=== PATIENT | female | born 1970 | race Caucasian/White ===

== ENCOUNTER 2022-11-08 09:27 | Inpatient (IN) | payer OTHER, SELFPAY ==
[2022-11-08] VITALS (12 sets, daily range): BP systolic 155–198; BP diastolic 74–102; PULSE 74–82; RESP 11–20; TEMP 36.4–36.7; O2SAT 92–99; BMI 31.9; BMI 35.2
--- NOTE | ~2022-11-08 | CT_ITS ---
EXAMINATION: Right hand, chest and CT brain without contrast. CLINICAL INDICATIONS: Weakness. COMPARISON: Chest x-ray 04/03/2015. TECHNIQUE: Chest one view. Right hand 3 views. 5 mm thin axial and reformatted 2 mm thin sagittal and coronal images of brain were obtained without contrast. DLP [address] examination was performed using dose optimization technique as appropriate, variously including the following: Automated exposure control Adjustment of MA and/or KV according to patient size(this includes techniques or standardized protocols for targeted exams where dose is matched to indication/reason for exam; extremities or head. Use of iterative reconstruction techniques. FINDINGS: CHEST X-RAY: The lungs are well-expanded and clear. The heart size and pulmonary vascularity is normal. No gross bony abnormality seen. RIGHT HAND: There is no visible fracture, dislocation or subluxation seen. The carpometacarpal, metacarpophalangeal and interphalangeal joint spaces are maintained normal. No bony erosive changes or loose bodies. No periapical spurring. No acute fracture or dislocation seen. BRAIN: There is no acute intra-axial, extra-axial bleed, masses or midline shift. There is no edema. There is no acute infarction evolution. The lateral ventricles are symmetrical in size and configuration without enlargement. The lester to white matter differentiation is maintained normal. Bone windows reveal no calvarial abnormality. There is diffuse skin scalp calcifications. Bilateral paranasal sinuses and mastoid air cells are well-aerated. CT/CT head/brain wo IV con IMPRESSION: Unremarkable chest exam. Unremarkable right hand exam. Unremarkable CT brain without contrast.
--- NOTE | ~2022-11-08 | US_ITS ---
EXAMINATION: US VENOUS ULTRASOUND WITH DOPPLER LOWER EXTREMITY, BILATERAL CLINICAL INFORMATION: Lower extremity edema COMPARISON: None available. TECHNIQUE: Ultrasound of the deep veins is performed from the hip to the calf with compression sonography and color and pulse Doppler assessment. Spectral analysis with color-flow imaging is performed. FINDINGS: RIGHT: There is normal venous compression and respiratory variation and augmented flow. The visualized common femoral vein, superficial femoral vein, profunda femoral vein, popliteal vein, and the trifurcation region shows no evidence of deep venous thrombosis. There is no significant popliteal fossa cyst. LEFT: There is normal venous compression and respiratory variation and augmented flow. The visualized common femoral vein, superficial femoral vein, profunda femoral vein, popliteal vein, and the trifurcation region shows no evidence of deep venous thrombosis. There is no significant popliteal fossa cyst. Within the left groin are prominent lymph nodes measuring 3.2 x 0.7 x 3.0 cm and 1.7 x 0.9 x 2.1 cm. If the patient's symptoms persist, followup ultrasound in 5 days 7 days might be of value to exclude proximal propagation from a non-visualized calf vein. US/US venous duplex LE IMPRESSION: 1. No DVT demonstrated in the bilateral lower extremity. 2. Within the left groin are prominent lymph nodes measuring 3.2 x 0.7 x 3.0 cm and 1.7 x 0.9 x 2.1 cm.
--- NOTE | 2022-11-08 09:48 | ED.GENADULT ---
HPI - General Adult General Chief complaint: Weakness Stated complaint: GENERAL WEAKNESS,FALLS, FROM METHADONE CLINIC Time Seen by Provider: 11/08/22 09:46 Source: patient, EMS, RN notes reviewed and old records reviewed Mode of arrival: EMS History of Present Illness HPI narrative: 51-year-old female with a past medical history of bipolar, asthma, GERD, diabetes, hepatitis-C, early cirrhosis, methadone dependent, presenting to the ED via EMS complaining of generalized fatigue/weakness, dizziness, unsteady gait with frequent falls x months. Patient was sent in from methadone clinic with fall [employer], denies head trauma today, however reports fell yesterday hitting head, denies LOC. also reports bilateral LE edema & throbbing pain to right ring finger, tried to open at home last night without success. Reports intermittent SOB. Denies chest pain, headache, abdominal pain, vomiting. Also admits to recently relapsing on heroin, denies ETOH Related Data Home Medications Medication Instructions Recorded Confirmed albuterol sulfate 2.5 mg/3 mL 2.5 mg inhalation Q4H PRN 11/02/22 11/08/22 (0.083 %) solution for nebulization Shortness Of Breath albuterol sulfate 90 mcg/actuation 2 inh inhalation Q6H PRN Shortness 11/02/22 11/08/22 breath activated powder inhaler Of Breath (ProAir RespiClick) clonazepam 1 mg tablet 1 mg PO TID 11/02/22 11/08/22 clonidine HCl 0.1 mg tablet 0.1 mg PO BEDTIME 11/02/22 11/08/22 duloxetine 30 mg capsule,delayed 30 mg PO DAILY 11/02/22 11/08/22 release fluticasone propionate 230 2 puff inhalation BID 11/02/22 11/08/22 mcg-salmeterol 21 mcg/actuation HFA inhaler (Advair HFA) furosemide 20 mg tablet 20 mg PO DAILY PRN Edema 11/02/22 11/08/22 gabapentin 600 mg tablet 600 mg PO BID PRN Pain 11/02/22 11/08/22 insulin glargine 100 unit/mL (3 25 unit subcut DAILY 11/02/22 11/08/22 mL) subcutaneous pen (Lantus Solostar U-100 Insulin) insulin lispro 100 unit/mL 5 - 25 unit subcut TID 11/02/22 11/08/22 subcutaneous solution lidocaine 5 % topical patch 1 patch topical DAILY 11/02/22 11/08/22 magnesium oxide 400 mg (241.3 mg 400 mg PO BID 11/02/22 11/08/22 magnesium) tablet methadone 5 mg/5 mL oral solution 35 mg PO DAILY 11/02/22 11/02/22 omeprazole 40 mg capsule,delayed 40 mg PO DAILY 11/02/22 11/08/22 release spironolactone 25 mg tablet 25 mg PO DAILY 11/02/22 11/08/22 triamcinolone acetonide 0.025 % 1 appl topical BID 11/02/22 11/08/22 topical cream zolpidem 12.5 mg tablet,extended 12.5 mg PO BEDTIME PRN Sleep 11/02/22 11/08/22 release,multiphase insulin glargine 100 unit/mL (3 25 unit subcut BEDTIME 11/08/22 11/08/22 mL) subcutaneous pen (Lantus Solostar U-100 Insulin) methocarbamol 750 mg tablet 750 mg PO QID PRN Pain 11/08/22 11/08/22 Allergies Allergy/AdvReac Type Severity Reaction Status Date / Time No Known Allergies Allergy Verified 11/02/22 15:26 Review of Systems Review of Systems: Constitutional: No Fever, No Chills, + Fatigue, + Malaise ENT/Mouth: No Hearing loss, No Ear Pain, No Nasal Congestion, No sore throat, No Rhinorrhea, No Swallowing Difficulty Eyes: No Eye Pain, No Swelling, NNo Vision Changes Cardiovascular: No Chest Pain, + SOB, No Dyspnea on Exertion, No Orthopnea, + Edema, No Palpitations Respiratory: No Cough, No Sputum, No Wheezing, No Dyspnea Gastrointestinal: + Nausea, No Vomiting, No Diarrhea, No Constipation, No Abdominal pain Genitourinary: No Dysuria, No Urinary Frequency, No Hematuria, No Urinary Incontinence/retention, No Urgency, No Flank Pain Musculoskeletal: No joint pain, No Myalgias, No Joint Swelling Skin: No Skin Lesions, No rash Neuro: + Weakness, No Numbness, No Paresthesias, No Loss of Consciousness, + lightheaded/ Dizziness, No Headache Yes all other systems are reviewed and are negative Constitutional: Constitutional: Reports as per HPI Neurologic: Denies Abnormal speech present PMFSH Past Medical History Attestation statement: The following information was validated with the patient. Medical History Hx of cryosurgery of cervix complicating Lumbar disc herniation PPD positive Family History Family History Mother Rheumatoid arthritis CAD (coronary artery disease) Glaucoma Diabetes HTN (hypertension) Maternal Grandmother Cataract Alzheimers disease Father HTN (hypertension) CAD (coronary artery disease) Diabetes Maternal Grandfather Parkinson disease Paternal Grandmother CAD (coronary artery disease) Rheumatoid arthritis Diabetes Paternal Grandfather Diabetes HTN (hypertension) Social History Social History Alcohol intake: never Patient Tobacco Use Status: Current everyday Tobacco user Cigarette Packs Per Day: 0.25 Cigarettes Per Day: 6 Years Smoked: 9 Smoked in Last 30 Days: Yes Use of substances other than those prescribed or required for medical reasons: Yes Substance Use Type: Heroin Advance Directives: No Advance Directives Information Provided: Yes Physical Exam ED Vital Signs: Vital Signs - 24 hr 11/08/22 09:47 11/08/22 10:00 11/08/22 11:04 Temperature 98.0 F Pulse Rate 82 77 Respiratory Rate 18 16 Blood Pressure 155/74 H 176/96 H Pulse Oximetry 99 Oxygen Delivery Method Room Air 11/08/22 11:05 11/08/22 11:09 11/08/22 12:05 Temperature Pulse Rate 80 79 78 Respiratory Rate 11 L Blood Pressure 189/97 H 198/102 H 165/91 H Pulse Oximetry 98 Oxygen Delivery Method Room Air 11/08/22 15:17 Temperature 97.6 F Pulse Rate 76 Respiratory Rate 16 Blood Pressure 160/81 H Pulse Oximetry 92 Oxygen Delivery Method Room Air BMI result Body Mass Index 31.9 Const Other: Appears under the influence General: cooperative, no acute distress, alert and awake Orientation/consciousness: patient oriented x3 HENMT Head: Yes normal to inspection and Yes atraumatic Ears: hearing grossly normal bilaterally General nose exam: Normal external nose present Face and sinus: Yes normal facial exam Throat: Yes posterior oropharynx normal Eyes General: appearance normal, both eyes and all related structures Pupils: Equal, round and reactive pupils present EOM: EOMs intact bilaterally Neck Neck: Yes normal visual inspection and Yes no meningeal signs Chest Chest palpation & inspection: normal inspection of the chest Resp Effort & Inspection: normal respiratory effort and no respiratory distress Auscultation: clear to auscultation bilaterally Cardio Rate: regular rate Heart sounds: S1 normal heart sound present and S2 normal heart sound present GI Inspection: Yes normal to inspection Palpation (GI): Soft to palpation, nontender, no guarding and not rigid Skin Rashes: no rashes Neuro General: patient oriented x3, tone normal, moves all extremities, no meningeal signs, no focal motor deficits and CN's II-XI intact bilaterally Cranial nerves: Yes CN's II-XII intact bilaterally and Yes Equal, round and reactive pupils present Speech: No Abnormal speech present Motor exam (neuro): 5/5 motor strength present throughout Extrem Other: Please refer to imaged above of right 4th digit. Appreciable felon with surrounding erythema, warmth, and exquisite tenderness. + fluctuant 3+ bilateral LE pitting edema with skin tightness General: Yes edema Course Course Course Narrative: -consult orthopedics, spoke with KAMLA Naranjo recommended medicine admit for IV antibiotics, may need I&D in the OR -1223--no leukocytosis. Lactic acid negative -1411--ESR elevated 54, CRP mildly elevated. Magnesium low at 1.4 >2g IV repletion ordered CT head/brain wo IV con/XR hand RT min 3V/XR chest 1V IMPRESSION: Unremarkable chest exam. ? Unremarkable right hand exam. ? Unremarkable CT brain without contrast. -orthostatic vital signs negative -venous duplex ultrasound negative for DVT >> plan to admit for further management Medications Administered Discontinued Medications Generic Name Dose Route Start Last Admin Trade Name Tonq PRN Reason Stop Dose Admin Furosemide 40 mg 11/08/22 14:13 11/08/22 14:55 Furosemide 40 Mg/4 Ml Vial IVPUSH 11/08/22 14:14 40 mg STAT STA Administration Protocol Sodium Chloride 1,000 mls @ 999 mls/hr 11/08/22 10:00 11/08/22 12:57 Ns IV 11/08/22 11:00 Infused .Q1H1M MARTINA Infusion Doxycycline Hyclate 100 mg/ 250 mls @ 166.67 mls/hr 11/08/22 12:23 11/08/22 12:57 Sodium Chloride IV 11/08/22 13:52 166.67 mls/hr ONCE ONE Administration Magnesium Sulfate 2 gm in 50 mls @ 25 mls/hr 11/08/22 12:38 11/08/22 15:04 Magnesium Sulfate/H2o IV 11/08/22 14:37 25 mls/hr ONCE ONE Administration Ketorolac Tromethamine 15 mg 11/08/22 13:09 11/08/22 13:35 Ketorolac Tromethamine 15 Mg/Ml Vial IVPUSH 11/08/22 13:10 15 mg ONCE ONE Administration Medical Decision Making Medical Decision Making MDM Narrative: 51-year-old female with a past medical history of bipolar, asthma, GERD, diabetes, hepatitis-C, early cirrhosis, methadone dependent, presenting to the ED via EMS complaining of generalized fatigue/weakness, dizziness, unsteady gait with frequent falls x months. Also reports bilateral LE edema w/SOB & throbbing pain to right ring finger. On exam vital signs stable, NAD, appears under the influence, no focal neuro deficits, abdomen soft/nontender, bilateral 3+ LE pitting edema/skin tightening, no drainage. Please refer to picture above of right 4th digit concerning for felon. Concern for substance abuse vs metabolic/infectious etiologies vs CHF vs subacute CVA. Low suspicion for TIA/PE or ACS Plan: EKG, labs, UA, drug screen, CXR, head CT, orthostatics, consult Orthopedics Please refer to course for remaining clinical decision making, interpretation of labs/imaging results, and discussions with consultants and/or family members. Differential Diagnosis Differential Diagnoses: The differential diagnosis associated with the presentation includes As above Admission/Observation Consideration of admission/observation: Escalation of care including admission/observation considered Lab Data [facility] Lab Attestation statement: I reviewed the patient's lab results. 11/08/22 10:53 11/08/22 10:53 Labs: Lab Results 11/08/22 11/08/22 11/08/22 Range/Units 10:41 10:53 10:53 WBC 6.1 (4.8-10.8) X10*3/uL RBC 4.07 L (4.20-5.50) X10*6/uL Hgb 11.2 L (12.0-16.0) g/dl Hct 32.5 L (37.0-47.0) % MCV 79.9 L (80.0-98.0) fL MCH 27.5 (27.0-33.0) pg MCHC 34.5 (31.0-35.0) g/dl RDW 14.8 (11.0-16.0) % Plt Count 153 L (160-400) X10*3/uL MPV 9.1 L (9.4-12.3) fL Immature Gran % (Auto) 0.2 (0.0-0.4) % Neut % (Auto) 68.6 (45-73) % Lymph % (Auto) 21.3 (20-40) % [place] % (Auto) 5.6 (2-11) % Eos % (Auto) 3.8 (0-4) % Baso % (Auto) 0.5 (0-2) % Lymph # (Auto) 1.3 (1.2-4.9) X10*3/uL [place] # (Auto) 0.3 (0.1-1.2) X10*3/uL Eos # (Auto) 0.2 (0.0-0.4) X10*3/uL Baso # (Auto) 0.0 (0.0-0.2) X10*3/uL Abs Immat Gran (auto) 0.01 (0.00-0.03) X10*3/uL Absolute Neuts (auto) 4.2 (2.0-8.3) x10*3/uL Absolute Nucleated RBC 0.000 (0.0-0.012) X10*3/uL Nucleated RBC % (auto) 0.0 (0.0-0.2) /100WBC ESR (0-20) MM/HR Sodium (135-145) mmol/L Potassium (3.3-5.1) mmol/L Chloride (96-108) mmol/L Carbon Dioxide (22-29) mmol/L Anion Gap (12-20) BUN (9-16) mg/dL Creatinine (0.5-1.4) mg/dL Estim Creat Clear Calc Estimated GFR Random Glucose (60-115) mg/dL Lactic Acid (0.5-2.0) mmol/L Calcium (8.4-10.2) mg/dL Magnesium (1.6-2.6) mg/dL Total Bilirubin (0.0-1.0) mg/dL Direct Bilirubin (0.0-0.5) mg/dL AST (5-31) U/L ALT (0-31) U/L Alkaline Phosphatase (39-117) U/L Troponin I High Sens 8.3 (<3.5-17.0) ng/L C-Reactive Protein (< or = 0.50) mg/dL B-Natriuretic Peptide (<100) pg/mL Total Protein (6.5-8.0) g/dL Albumin (3.5-5.0) g/dL Urine Color Urine Appearance Urine pH (5.0-9.0) Ur Specific [place] (1.005-1.025) Urine Protein (Neg-Trace) mg/dL Urine Glucose (UA) (Negative) mg/dL Urine Ketones (Negative) mg/dL Urine Blood (Negative) Urine Nitrite (Negative) Ur Leukocyte Esterase (Negative) Urine RBC (0-2) /HPF Urine WBC (0-5) /HPF Ur Squamous Epith Cells (0-2) /HPF Urine Bacteria (None Seen) Hyaline Casts (0-2) /LPF Urine Opiates Screen (Not Detect) Urine Fentanyl Screen (Not Detect) Ur Barbiturates Screen (Not Detect) Ur Phencyclidine Scrn (Not Detect) Ur Amphetamines Screen (Not Detect) U Benzodiazepines Scrn (Not Detect) Urine Cocaine Screen (Not Detect) U Marijuana (THC) Screen (Not Detect) COVID-19 (VENKATESH) Negative (Negative) COVID-19 Clin Com See Note 11/08/22 11/08/22 11/08/22 Range/Units 10:53 10:53 11:57 WBC (4.8-10.8) X10*3/uL RBC (4.20-5.50) X10*6/uL Hgb (12.0-16.0) g/dl Hct (37.0-47.0) % MCV (80.0-98.0) fL MCH (27.0-33.0) pg MCHC (31.0-35.0) g/dl RDW (11.0-16.0) % Plt Count (160-400) X10*3/uL MPV (9.4-12.3) fL Immature Gran % (Auto) (0.0-0.4) % Neut % (Auto) (45-73) % Lymph % (Auto) (20-40) % [place] % (Auto) (2-11) % Eos % (Auto) (0-4) % Baso % (Auto) (0-2) % Lymph # (Auto) (1.2-4.9) X10*3/uL [place] # (Auto) (0.1-1.2) X10*3/uL Eos # (Auto) (0.0-0.4) X10*3/uL Baso # (Auto) (0.0-0.2) X10*3/uL Abs Immat Gran (auto) (0.00-0.03) X10*3/uL Absolute Neuts (auto) (2.0-8.3) x10*3/uL Absolute Nucleated RBC (0.0-0.012) X10*3/uL Nucleated RBC % (auto) (0.0-0.2) /100WBC ESR 54 H (0-20) MM/HR Sodium (135-145) mmol/L Potassium (3.3-5.1) mmol/L Chloride (96-108) mmol/L Carbon Dioxide (22-29) mmol/L Anion Gap (12-20) BUN (9-16) mg/dL Creatinine (0.5-1.4) mg/dL Estim Creat Clear Calc Estimated GFR Random Glucose (60-115) mg/dL Lactic Acid 0.9 (0.5-2.0) mmol/L Calcium (8.4-10.2) mg/dL Magnesium (1.6-2.6) mg/dL Total Bilirubin (0.0-1.0) mg/dL Direct Bilirubin (0.0-0.5) mg/dL AST (5-31) U/L ALT (0-31) U/L Alkaline Phosphatase (39-117) U/L Troponin I High Sens (<3.5-17.0) ng/L C-Reactive Protein (< or = 0.50) mg/dL B-Natriuretic Peptide 100 (<100) pg/mL Total Protein (6.5-8.0) g/dL Albumin (3.5-5.0) g/dL Urine Color Urine Appearance Urine pH (5.0-9.0) Ur Specific [place] (1.005-1.025) Urine Protein (Neg-Trace) mg/dL Urine Glucose (UA) (Negative) mg/dL Urine Ketones (Negative) mg/dL Urine Blood (Negative) Urine Nitrite (Negative) Ur Leukocyte Esterase (Negative) Urine RBC (0-2) /HPF Urine WBC (0-5) /HPF Ur Squamous Epith Cells (0-2) /HPF Urine Bacteria (None Seen) Hyaline Casts (0-2) /LPF Urine Opiates Screen (Not Detect) Urine Fentanyl Screen (Not Detect) Ur Barbiturates Screen (Not Detect) Ur Phencyclidine Scrn (Not Detect) Ur Amphetamines Screen (Not Detect) U Benzodiazepines Scrn (Not Detect) Urine Cocaine Screen (Not Detect) U Marijuana (THC) Screen (Not Detect) COVID-19 (VENKATES[facility]) (Negative) COVID-19 Clin Com 11/08/22 11/08/22 11/08/22 Range/Units 11:58 11:58 11:58 WBC (4.8-10.8) X10*3/uL RBC (4.20-5.50) X10*6/uL Hgb (12.0-16.0) g/dl Hct (37.0-47.0) % MCV (80.0-98.0) fL MCH (27.0-33.0) pg MCHC (31.0-35.0) g/dl RDW (11.0-16.0) % Plt Count (160-400) X10*3/uL MPV (9.4-12.3) fL Immature Gran % (Auto) (0.0-0.4) % Neut % (Auto) (45-73) % Lymph % (Auto) (20-40) % [place] % (Auto) (2-11) % Eos % (Auto) (0-4) % Baso % (Auto) (0-2) % Lymph # (Auto) (1.2-4.9) X10*3/uL [place] # (Auto) (0.1-1.2) X10*3/uL Eos # (Auto) (0.0-0.4) X10*3/uL Baso # (Auto) (0.0-0.2) X10*3/uL Abs Immat Gran (auto) (0.00-0.03) X10*3/uL Absolute Neuts (auto) (2.0-8.3) x10*3/uL Absolute Nucleated RBC (0.0-0.012) X10*3/uL Nucleated RBC % (auto) (0.0-0.2) /100WBC ESR (0-20) MM/HR Sodium 137 (135-145) mmol/L Potassium 4.1 (3.3-5.1) mmol/L Chloride 107 (96-108) mmol/L Carbon Dioxide 25 (22-29) mmol/L Anion Gap 9 L (12-20) BUN 7 L (9-16) mg/dL Creatinine 0.83 (0.5-1.4) mg/dL Estim Creat Clear Calc 83.3 Estimated GFR > 60 Random Glucose 230 H (60-115) mg/dL Lactic Acid (0.5-2.0) mmol/L Calcium 8.3 L (8.4-10.2) mg/dL Magnesium 1.4 L* (1.6-2.6) mg/dL Total Bilirubin 0.5 (0.0-1.0) mg/dL Direct Bilirubin 0.2 (0.0-0.5) mg/dL AST 14 (5-31) U/L ALT 10 (0-31) U/L Alkaline Phosphatase 83 (39-117) U/L Troponin I High Sens (<3.5-17.0) ng/L C-Reactive Protein 1.20 H (< or = 0.50) mg/dL B-Natriuretic Peptide (<100) pg/mL Total Protein 6.7 (6.5-8.0) g/dL Albumin 3.0 L (3.5-5.0) g/dL Urine Color Yellow Urine Appearance Clear Urine pH 5.5 (5.0-9.0) Ur Specific [place] 1.010 (1.005-1.025) Urine Protein 100 (2+) H (Neg-Trace) mg/dL Urine Glucose (UA) 250 H (Negative) mg/dL Urine Ketones Negative (Negative) mg/dL Urine Blood Trace H (Negative) Urine Nitrite Negative (Negative) Ur Leukocyte Esterase Negative (Negative) Urine RBC 0-2 (0-2) /HPF Urine WBC 0-5 (0-5) /HPF Ur Squamous Epith Cells 6-10 (0-2) /HPF Urine Bacteria None Seen (None Seen) Hyaline Casts 0-2 (0-2) /LPF Urine Opiates Screen POSITIVE H (Not Detect) Urine Fentanyl Screen POSITIVE H (Not Detect) Ur Barbiturates Screen Not Detected (Not Detect) Ur Phencyclidine Scrn Not Detected (Not Detect) Ur Amphetamines Screen Not Detected (Not Detect) U Benzodiazepines Scrn Not Detected (Not Detect) Urine Cocaine Screen Not Detected (Not Detect) U Marijuana (THC) Screen Not Detected (Not Detect) COVID-19 ([facility]ATES[facility]) (Negative) COVID-19 Clin Com Radiology Impression Discussion of test interpretation with radiology: I have reviewed the radiologist's reading. External Record Review External record reviewed: Inpatient record, Office record, Outpatient record, Prior outpatient labs, Prior outpatient radiology, Primary care record and Outside ED record Critical Care Time Critical Care Time Critical Care Time: Yes Total Critical Care Time: 40 Attestation: I have personally provided critical care time exclusive of time spent on separately billable procedures. Time includes review of lab data, radiology results, discussion with consultants, and monitoring for potential decompensation. Intervention performed as documented. Discharge Plan Discharge Clinical Impression: Felon of finger, Weakness, Multiple falls, Pedal edema Patient Disposition: Admitted As Inpatient
--- NOTE | 2022-11-08 10:00 | ECG_ITS ---
Test Reason : Weakness Blood Pressure : / mmHG Vent. Rate : 079 BPM Atrial Rate : 079 BPM P-R Int : 162 ms QRS Dur : 074 ms QT Int : 388 ms P-R-T Axes : 024 031 055 degrees QTc Int : 444 ms Artifact in tracing Normal sinus rhythm Normal ECG No previous ECGs available Referred By: Zoila Sheth Electronically Signed By:RAMILA HOFFMANN
--- NOTE | 2022-11-08 10:29 | PC.NURSE ---
Addendum entered by Humaira Fontenot RN 11/08/22 18:19: Wound to 4th digit of right side. Not right index finger. Original Note: Pt on stretcher, airway open and patent, no obvious signs of distress, no difficulty/labored breathing. A&ox4, skin normal for ethnicity, warm, and dry. Lung sounds diminished, but wheezing noted throughout left and right. Heart sounds normal. Bowel sounds present all patel, abdomen soft. Pt has wounds on lower abdomen, pt also reports that she has wounds on her private areas also. Edema noted in legs, slightly warm to touch, and slight redness. Pt reports using two bags of heroine yesterday, denies any use today. Pt also has an abscess on right index finger, very swollen, that pt reports is very painful.
[2022-11-08 10:59] LABS: MANUAL DIFF FLAG NO
[2022-11-08 11:00] LABS: Basophils Percent Auto 0.5 % (0-2); Eosinophils Absolute Auto 0.2 X10*3/uL (0.0-0.4); Eosinophils Percent Auto 3.8 % (0-4); Hematocrit 32.5 % (37.0-47.0); Hemoglobin 11.2 g/dl (12.0-16.0); Imm Gran Abs Auto 0.01 X10*3/uL (0.00-0.03); Imm Gran Pct Auto 0.2 % (0.0-0.4); Lymphocytes Absolute Auto 1.3 X10*3/uL (1.2-4.9); Lymphocytes Percent Auto 21.3 % (20-40); Mean Corpuscular HGB Conc 34.5 g/dl (31.0-35.0); Mean Corpuscular Hemoglobin 27.5 pg (27.0-33.0); Mean Corpuscular Volume 79.9 fL (80.0-98.0); Mean Platelet Volume 9.1 fL (9.4-12.3); Monocytes Absolute Auto 0.3 X10*3/uL (0.1-1.2); Monocytes Percent Auto 5.6 % (2-11); Neutrophils Absolute Auto 4.2 x10*3/uL (2.0-8.3); Neutrophils Percent Auto 68.6 % (45-73); Platelet Count 153 X10*3/uL (160-400); Red Blood Count 4.07 X10*6/uL (4.20-5.50); Red Cell Distribution Width 14.8 % (11.0-16.0); White Blood Count 6.1 X10*3/uL (4.8-10.8)
[2022-11-08] MEDS: 0.9 % Sodium Chloride 1,000 ML 999 ML IV (11:01)
[2022-11-08 11:11] LABS: IDNOW Serial# BCCEAD1C
[2022-11-08 11:12] LABS: COVID-19 Test Negative (Negative)
[2022-11-08 11:25] LABS: B Type Natriuretic Peptide 100 pg/mL (<100)
[2022-11-08 11:26] LABS: Troponin-I High Sensitivity 8.3 ng/L (<3.5-17.0)
[2022-11-08 12:19] LABS: Appearance Urine Clear; Color Urine Yellow; Glucose Urine UA 250 mg/dL (Negative); Leukocyte Esterase Urine Negative (Negative); Nitrite Urine Negative (Negative); PH 5.5 (5.0-9.0); UMIC TRIGGER UACC YES; Urine Blood Trace (Negative); Urine Ketones Negative (Negative); Urine Protein 100 (2+) mg/dL (Neg-Trace)
[2022-11-08 12:19] LABS: Lactic Acid 0.9 mmol/L (0.5-2.0)
[2022-11-08 12:24] LABS: Bacteria Urine None Seen (None Seen); Hyaline Casts Urine 0-2 /LPF (0-2); RBC Urine 0-2 /HPF (0-2); WBC Urine 0-5 /HPF (0-5)
[2022-11-08 12:28] LABS: Amphetamine Screen Urine Not Detected (Not Detect); Barbiturates, Urine Not Detected (Not Detect); Benzodiazepines Screen Urine Not Detected (Not Detect); Cannabinoid Screen Urine Not Detected (Not Detect); Cocaine Screen Urine Not Detected (Not Detect); Fentanyl, urine POSITIVE (Not Detect); Opiate Screen Urine POSITIVE (Not Detect); Phencyclidine Screen Urine Not Detected (Not Detect)
[2022-11-08 12:35] LABS: Alanine Aminotransferase 10 U/L (0-31); Alkaline Phosphatase 83 U/L (39-117); Anion Gap 9 (12-20); Aspartate Amino Transferase 14 U/L (5-31); Bilirubin Direct 0.2 mg/dL (0.0-0.5); Bilirubin Total 0.5 mg/dL (0.0-1.0); Blood Urea Nitrogen 7 mg/dL (9-16); Calcium 8.3 mg/dL (8.4-10.2); Carbon Dioxide 25 mmol/L (22-29); Chloride 107 mmol/L (96-108); Creatinine Clr Calc Pharmacy 83.3; Estimated Glomerular Filt Rate > 60; Glucose Random 230 mg/dL (60-115); Magnesium 1.4 mg/dL (1.6-2.6); Potassium 4.1 mmol/L (3.3-5.1); Sodium 137 mmol/L (135-145); Total Protein 6.7 g/dL (6.5-8.0)
[2022-11-08] MEDS: Doxycycline Hyclate 100 MG in 0.9 % Sodium Chloride 250 ML 166.67 MG IV (12:57)
--- NOTE | 2022-11-08 13:05 | PHA.MEDREC ---
Pharmacy Consult ? Medication Reconciliation Pharmacy has completed the medication reconciliation.
[2022-11-08] MEDS: Ketorolac Tromethamine 15 MG/ML VIAL IVPUSH (13:35)
--- NOTE | 2022-11-08 13:36 | PC.NURSE ---
patient medicated for 10/10 pain, walking with patient to bathroom.
[2022-11-08 13:43] LABS: Erythrocyte Sedimentation Rate 54 MM/HR (0-20)
[2022-11-08] MEDS: Furosemide 40 MG/4 ML VIAL IVPUSH (14:55)
[2022-11-08] MEDS: Magnesium Sulfate/H2O 2 GM/50 ML PIGGYBACK IV (15:04)
--- NOTE | 2022-11-08 16:57 | P.HPHOSP_ITS ---
History of Present Illness Date of Service: 11/08/22 Chief Complaint: Finger pain 51-year-old woman presenting to the ER with complaints of worsening throbbing pain and swelling to right hand 4th digit. She reports that she thought there was an abscess and she try to open it up but the site got more swollen and p ainful. She reports a history of IV drug use, heroin and reports that she relapsed recently but denies injecting into her hand or fingers. She also reported lower extremity edema and frequent falls. She denied fever, chills, nausea, vomiting, diarrhea, recent travel, sick contacts. No fever leukocytosis noted in the ER. Positive for opiates and fentanyl. Elevated blood pressure readings. She was given doxycycline, magnesium Toradol and Lasix. All imaging studies including chest and hand x-ray, head CT and bilateral venous duplex lower extremity ultrasound negative for any acute abnormalities. Be admitted for further management and treatment of acute cellulitis of right hand. Review of Systems Review of Systems: Denies any recent fever chills or decrease in appetite respiratory denies any shortness of breath coverage production cardiovascular denied chest pain gastrointestinal denies any dysphagia abdominal pain nausea vomiting or diarrhea genitourinary denies any dysuria frequency or hematuria musculoskeletal denies any joint pain or swelling neuropsych denies any weakness or seizures all other systems reviewed are negative reports LE edema [facility] Medical History (Updated 11/08/22 @ 17:07 by Chayito Alvarez NP) Back pain Bipolar 1 disorder Diabetes mellitus Hepatitis C Hx of cryosurgery of cervix complicating Lumbar disc herniation PPD positive Family History Mother Rheumatoid arthritis CAD (coronary artery disease) Glaucoma Diabetes HTN (hypertension) Maternal Grandmother Cataract Alzheimers disease Father HTN (hypertension) CAD (coronary artery disease) Diabetes Maternal Grandfather Parkinson disease Paternal Grandmother CAD (coronary artery disease) Rheumatoid arthritis Diabetes Paternal Grandfather Diabetes HTN (hypertension) Social History Alcohol intake: never Patient Tobacco Use Status: Current everyday Tobacco user Cigarette Packs Per Day: 0.25 Cigarettes Per Day: 6 Years Smoked: 9 Smoked in Last 30 Days: Yes Use of substances other than those prescribed or required for medical reasons: Yes Substance Use Type: Heroin Advance Directives: No Advance Directives Information Provided: Yes Meds Allergies Allergy/AdvReac Type Severity Reaction Status Date / Time No Known Allergies Allergy Verified 11/02/22 15:26 Active Medications: Current Medications Acetaminophen (Acetaminophen 325 Mg Tablet) 650 mg PO Q6H PRN PRN Reason: Pain, Mild (Pain Scale 1-3) Albuterol Sulfate (Albuterol Sulfate (0.083%) 2.5 Mg/3 Ml Vial.Neb) 2.5 mg INHALE Q4H PRN PRN Reason: Shortness Of Breath Albuterol Sulfate (Albuterol Sulfate 90 Mcg 8 Gm Inhaler) 2 puff INHALE Q6H PRN PRN Reason: Shortness Of Breath Clonazepam (Clonazepam 1 Mg Tablet) 1 mg PO TID [facility]INA Clonidine HCl (Clonidine Hcl 0.1 Mg Tablet) 0.1 mg PO BEDTIME MARTINA; Protocol Duloxetine HCl (Duloxetine Hcl 30 Mg Capsule.Dr) 30 mg PO DAILY M[facility]INA Furosemide (Furosemide 20 Mg Tablet) 20 mg PO DAILY PRN; Protocol PRN Reason: Edema Glucose (Glucose Gel 15 Gm Gel..Gram.) 15 gm PO Q15M PRN; Protocol PRN Reason: per Hypoglycemia Standing Ord. Piperacillin Sod/Tazobactam (Sod 3.375 gm/ Sodium Chloride) 50 mls @ 100 mls/hr IV Q6H [facility]INA Doxycycline Hyclate 100 mg/ (Sodium Chloride) 250 mls @ 166.67 mls/hr IV Q12H [facility] Dextrose (D10) 250 mls @ 750 mls/hr IV Q15M PRN; Protocol PRN Reason: per Hypoglycemia Standing Ord. Insulin Glargine (Insulin Glargine,Hum.Rec.Anlog 100 Unit/Ml 10 Ml Vial) 25 unit SUBCUT BEDTIME [facility] Insulin Glargine (Insulin Glargine,Hum.Rec.Anlog 100 Unit/Ml 10 Ml Vial) 25 unit SUBCUT DAILY [facility] Insulin Human Lispro (Insulin Lispro 100 Unit/Ml 3 Ml Vial) 0 unit SUBCUT QIDACHS [facility]; Protocol Lidocaine (Lidocaine 4 % Patch Adh..Patch) 1 patch TRANSDERMA DAILY [facility]INA; Protocol Magnesium Oxide (Magnesium Oxide 400 Mg Tablet) 400 mg PO BID [facility] Morphine Sulfate (Morphine Sulfate 2 Mg/Ml Cartridge) 1 mg IVPUSH Q4H PRN; Protocol PRN Reason: Pain, Mild (Pain Scale 1-3) Nicotine Polacrilex (Nicotine Polacrilex 2 Mg Gum) 2 mg BUCCAL Q2H PRN PRN Reason: withdrawal Non-Formulary Medication (Fluticasone Propion-Salmeterol [Advair Hfa]) 2 puff INHALE BID MARTINA Non-Formulary Medication (Zolpidem) 12.5 mg PO BEDTIME PRN PRN Reason: Sleep Omeprazole (Omeprazole 40 Mg Capsule.Dr) 40 mg PO DAILY [facility] Ondansetron HCl (Ondansetron Hcl 4 Mg/2 Ml Vial) 4 mg IVPUSH Q8H PRN PRN Reason: Nausea and Vomiting Sodium Chloride (0.9 % Sodium Chloride Flush 3 Ml Syringe) 3 ml IVFLUSH QSHIFT [facility]ARTINA Spironolactone (Spironolactone 25 Mg Tablet) 25 mg PO DAILY [facility]; Protocol Home Medications Medication Instructions Recorded Confirmed Last Taken Type albuterol sulfate 2.5 mg/3 mL 2.5 mg inhalation Q4H PRN 11/02/22 11/08/22 Unknown History (0.083 %) solution for nebulization Shortness Of Breath albuterol sulfate 90 mcg/actuation 2 inh inhalation Q6H PRN Shortness 11/02/22 0 11/08/22 Unknown History breath activated powder inhaler Of Breath (ProAir RespiClick) clonazepam 1 mg tablet 1 mg PO TID 11/02/22 11/08/22 Unknown History clonidine HCl 0.1 mg tablet 0.1 mg PO BEDTIME 11/02/22 11/08/22 Unknown History duloxetine 30 mg capsule,delayed 30 mg PO DAILY 11/02/22 11/08/22 Unknown History release fluticasone propionate 230 2 puff inhalation BID 11/02/22 11/08/22 Unknown History mcg-salmeterol 21 mcg/actuation HFA inhaler (Advair HFA) furosemide 20 mg tablet 20 mg PO DAILY PRN Edema 11/02/22 11/08/22 Unknown History gabapentin 600 mg tablet 600 mg PO BID PRN Pain 11/02/22 11/08/22 Unknown History insulin glargine 100 unit/mL (3 25 unit subcut DAILY 11/02/22 11/08/22 Unknown History mL) subcutaneous pen (Lantus Solostar U-100 Insulin) insulin lispro 100 unit/mL 5 - 25 unit subcut TID 11/02/22 11/08/22 Unknown History subcutaneous solution lidocaine 5 % topical patch 1 patch topical DAILY 11/02/22 11/08/22 Unknown History magnesium oxide 400 mg (241.3 mg 400 mg PO BID 11/02/22 11/08/22 Unknown History magnesium) tablet methadone 5 mg/5 mL oral solution 35 mg PO DAILY 11/02/22 11/02/22 Unknown History omeprazole 40 mg capsule,delayed 40 mg PO DAILY 11/02/22 11/08/22 Unknown History release spironolactone 25 mg tablet 25 mg PO DAILY 11/02/22 11/08/22 Unknown History triamcinolone acetonide 0.025 % 1 appl topical BID 11/02/22 11/08/22 Unknown History topical cream zolpidem 12.5 mg tablet,extended 12.5 mg PO BEDTIME PRN Sleep 11/02/22 11/08/22 Unknown History release,multiphase insulin glargine 100 unit/mL (3 25 unit subcut BEDTIME 11/08/22 11/08/22 Unknown History mL) subcutaneous pen (Lantus Solostar U-100 Insulin) methocarbamol 750 mg tablet 750 mg PO QID PRN Pain 11/08/22 11/08/22 Unknown History Physical Exam Vital Signs and Narrative: Vital Signs: Last Vital Signs Temp 97.6 F 11/08/22 15:17 Pulse 76 11/08/22 15:17 Resp 16 11/08/22 15:17 BP 160/81 H 11/08/22 15:17 Pulse Ox 92 11/08/22 15:17 O2 Del Method Room Air 11/08/22 15:17 BMI result Body Mass Index 31.9 Appearing in no acute distress head is normocephalic atraumatic eyes pupils are PERRLA sclera is anicteric mouth throat mucous membranes are intact and moist neck is supple no lymphadenopathy, no JVD noted lung sounds are clear to auscultation heart regular rate rhythm, clear S1, S2 positive bowel sounds, abdomen is soft, nontender neuro patient is alert x3, no focal deficits Right hand erythema and edema dependant LE edema Results Labs 11/08/22 10:53 11/08/22 11:58 Labs: Laboratory Results - last 24 hr 11/08/22 11/08/22 11/08/22 10:41 10:53 10:53 MCV 79.9 L MCH 27.5 MCHC 34.5 RDW 14.8 Plt Count 153 L MPV 9.1 L Immature Gran % (Auto) 0.2 Neut % (Auto) 68.6 Lymph % (Auto) 21.3 [place] % (Auto) 5.6 Eos % (Auto) 3.8 Baso % (Auto) 0.5 Lymph # (Auto) 1.3 [place] # (Auto) 0.3 Eos # (Auto) 0.2 Baso # (Auto) 0.0 Abs Immat Gran (auto) 0.01 Absolute Neuts (auto) 4.2 Absolute Nucleated RBC 0.000 Nucleated RBC % (auto) 0.0 ESR Anion Gap Estim Creat Clear Calc Estimated GFR Random Glucose Lactic Acid Calcium Magnesium Total Bilirubin Direct Bilirubin AST ALT Alkaline Phosphatase Troponin I High Sens 8.3 C-Reactive Protein B-Natriuretic Peptide Total Protein Albumin Urine Color Urine Appearance Urine pH Ur Specific [place] Urine Protein Urine Glucose (UA) Urine Ketones Urine Blood Urine Nitrite Ur Leukocyte Esterase Urine RBC Urine WBC Ur Squamous Epith Cells Urine Bacteria Hyaline Casts Urine Opiates Screen Urine Fentanyl Screen Ur Barbiturates Screen Ur Phencyclidine Scrn Ur Amphetamines Screen U Benzodiazepines Scrn Urine Cocaine Screen U Marijuana (THC) Screen COVID-19 (VENKATESH) Negative COVID-19 Clin Com See Note 11/08/22 11/08/22 11/08/22 10:53 10:53 11:57 MCV MCH MCHC RDW Plt Count MPV Immature Gran % (Auto) Neut % (Auto) Lymph % (Auto) [place] % (Auto) Eos % (Auto) Baso % (Auto) Lymph # (Auto) [place] # (Auto) Eos # (Auto) Baso # (Auto) Abs Immat Gran (auto) Absolute Neuts (auto) Absolute Nucleated RBC Nucleated RBC % (auto) ESR 54 H Anion Gap Estim Creat Clear Calc Estimated GFR Random Glucose Lactic Acid 0.9 Calcium Magnesium Total Bilirubin Direct Bilirubin AST ALT Alkaline Phosphatase Troponin I High Sens C-Reactive Protein B-Natriuretic Peptide 100 Total Protein Albumin Urine Color Urine Appearance Urine pH Ur Specific [place] Urine Protein Urine Glucose (UA) Urine Ketones Urine Blood Urine Nitrite Ur Leukocyte Esterase Urine RBC Urine WBC Ur Squamous Epith Cells Urine Bacteria Hyaline Casts Urine Opiates Screen Urine Fentanyl Screen Ur Barbiturates Screen Ur Phencyclidine Scrn Ur Amphetamines Screen U Benzodiazepines Scrn Urine Cocaine Screen U Marijuana (THC) Screen COVID-19 (VENKATESH) COVID-19 Ticket [place]oy Com 11/08/22 11/08/22 11/08/22 11:58 11:58 11:58 MCV MCH MCHC RDW Plt Count MPV Immature Gran % (Auto) Neut % (Auto) Lymph % (Auto) [place] % (Auto) Eos % (Auto) Baso % (Auto) Lymph # (Auto) [place] # (Auto) Eos # (Auto) Baso # (Auto) Abs Immat Gran (auto) Absolute Neuts (auto) Absolute Nucleated RBC Nucleated RBC % (auto) ESR Anion Gap 9 L Estim Creat Clear Calc 83.3 Estimated GFR > 60 Random Glucose 230 H Lactic Acid Calcium 8.3 L Magnesium 1.4 L* Total Bilirubin 0.5 Direct Bilirubin 0.2 AST 14 ALT 10 Alkaline Phosphatase 83 Troponin I High Sens C-Reactive Protein 1.20 H B-Natriuretic Peptide Total Protein 6.7 Albumin 3.0 L Urine Color Yellow Urine Appearance Clear Urine pH 5.5 Ur Specific [place] 1.010 Urine Protein 100 (2+) H Urine Glucose (UA) 250 H Urine Ketones Negative Urine Blood Trace H Urine Nitrite Negative Ur Leukocyte Esterase Negative Urine RBC 0-2 Urine WBC 0-5 Ur Squamous Epith Cells 6-10 Urine Bacteria None Seen Hyaline Casts 0-2 Urine Opiates Screen POSITIVE H Urine Fentanyl Screen POSITIVE H Ur Barbiturates Screen Not Detected Ur Phencyclidine Scrn Not Detected Ur Amphetamines Screen Not Detected U Benzodiazepines Scrn Not Detected Urine Cocaine Screen Not Detected U Marijuana (THC) Screen Not Detected COVID-19 (VENKATESH) COVID-19 Clin Com Imaging Radiologist's Impressions: Impressions Chest X-Ray 11/08/22 10:30 IMPRESSION: Unremarkable chest exam. Unremarkable right hand exam. Unremarkable CT brain without contrast. Hand X-Ray 11/08/22 10:30 IMPRESSION: Unremarkable chest exam. Unremarkable right hand exam. Unremarkable CT brain without contrast. Head CT 11/08/22 10:37 IMPRESSION: Unremarkable chest exam. Unremarkable right hand exam. Unremarkable CT brain without contrast. Venous Duplex 11/08/22 14:34 IMPRESSION: 1. No DVT demonstrated in the bilateral lower extremity. 2. Within the left groin are prominent lymph nodes measuring 3.2 x 0.7 x 3.0 cm and 1.7 x 0.9 x 2.1 cm. Assessment and Plan (1) Miky of finger: Status: Acute Plan 51-year-old woman admitted with cellulitis of right and 4th digit requiring I&D Right hand 4th digit cellulitis/felon finger Zosyn and doxycycline will require I&D, orthopedic surgery consultation pending Pain management Elevate extremity to help decrease swelling and pain keep clean and dry Proteinurea with noted lower extremity edema no DVT on us no UMA some degree of malnutrition likely, add ensure to diet On Lasix and spironolactone at home, will continue these lisinopril added check lipid panel 24 hour urine CHRIS stockings for LE edema nephrology consult elevated blood pressure readings no noted hx of HTN lisinopril 5 mg added follow BP closely Hypomagnesemia Repleted in the ER Diabetes mellitus type 2 Sliding scale, ADA diet, long-acting insulin Chronic back pain Lidocaine patches IV drug use Reports recent relapse using heroin Addiction medicine consultation On methadone, clinic verification required Asthma No exacerbation Continue home inhalers Mental health Continue home medications Smoker Nicotine replacement Obesity. BMI 31.9 Weight management DVT prophylaxis with heparin Attending Dr. Machado full code Patient requires 2 inpatient midnights for treatment right hand digit cellulitis requiring IV antibiotics and likely surgical intervention as well as workup for proteinuria and edema Time Spent With Patient Time: Total time managing care of this patient today ____ minutes. Quality Stroke Does the patient have a stroke diagnosis?: No VTE Prior VTE?: No VTE Risk Level:: Medical - moderate - high VTE Device Contraindication: Treatment Not Indicated VTE Drug Contraindication: N/A - Med Ordered
[2022-11-08] MEDS: lisinopriL 5 MG TABLET PO (17:43)
[2022-11-08] MEDS: Lidocaine 4 % Patch ADH..PATCH 1 PATCH TRANSDERMA (17:45)
[2022-11-08] MEDS: Piperacillin Sodium/Tazobactam 3.375 GM in 0.9 % Sodium Chloride 50 ML IV (17:46)
--- NOTE | 2022-11-08 18:30 | PC.NURSE ---
RN to RN report given to Lizzie.
[2022-11-08] MEDS: Morphine Sulfate 2 MG/ML CARTRIDGE 1 MG IVPUSH (19:53)
[2022-11-08 20:37] LABS: Glucose, Whole Blood 431 mg/dL (60-115)
[2022-11-08] MEDS: Zolpidem Tartrate 5 MG TABLET PO (21:20)
[2022-11-08] MEDS: clonazePAM 1 MG TABLET PO (21:20)
[2022-11-08] MEDS: Magnesium Oxide 400 MG TABLET PO (21:20)
[2022-11-08] MEDS: Insulin Lispro 100 UNIT/ML 3 ML VIAL SUBCUT (21:28)
[2022-11-08] MEDS: Triamcinolone Acet 0.025 % Cream 15 GM TUBE 1 APPL TOPICAL (21:29)
[2022-11-08] MEDS: Insulin Glargine,Hum.rec.anlog 100 UNIT/ML 10 ML VIAL 25 UNIT SUBCUT (21:32)
[2022-11-09] MEDS: Piperacillin Sodium/Tazobactam 3.375 GM in 0.9 % Sodium Chloride 50 ML IV ×4 (00:13→17:56)
[2022-11-09] MEDS: Morphine Sulfate 2 MG/ML CARTRIDGE 1 MG IVPUSH ×4 (00:25→20:20)
[2022-11-09] MEDS: Doxycycline Hyclate 100 MG in 0.9 % Sodium Chloride 250 ML 166.67 MG IV ×2 (00:56→13:36)
[2022-11-09 02:49] VITALS: BP 164/84; PULSE 83; RESP 16; TEMP 36.6; O2SAT 96
[2022-11-09] MEDS: Omeprazole 40 MG CAPSULE.DR PO (05:27)
[2022-11-09 07:16] LABS: MANUAL DIFF FLAG NO
[2022-11-09 07:17] VITALS: BP 181/94; PULSE 82; RESP 20; TEMP 36.8; O2SAT 98
[2022-11-09 07:21] LABS: Basophils Percent Auto 0.7 % (0-2); Eosinophils Absolute Auto 0.2 X10*3/uL (0.0-0.4); Hematocrit 32.3 % (37.0-47.0); Hemoglobin 11.1 g/dl (12.0-16.0); Imm Gran Abs Auto 0.02 X10*3/uL (0.00-0.03); Imm Gran Pct Auto 0.4 % (0.0-0.4); Lymphocytes Absolute Auto 1.4 X10*3/uL (1.2-4.9); Lymphocytes Percent Auto 25.3 % (20-40); Mean Corpuscular HGB Conc 34.4 g/dl (31.0-35.0); Mean Corpuscular Hemoglobin 27.5 pg (27.0-33.0); Mean Corpuscular Volume 80.1 fL (80.0-98.0); Monocytes Absolute Auto 0.3 X10*3/uL (0.1-1.2); Monocytes Percent Auto 5.3 % (2-11); Neutrophils Absolute Auto 3.5 x10*3/uL (2.0-8.3); Neutrophils Percent Auto 64.3 % (45-73); Platelet Count 141 X10*3/uL (160-400); Red Blood Count 4.03 X10*6/uL (4.20-5.50); Red Cell Distribution Width 14.9 % (11.0-16.0); White Blood Count 5.5 X10*3/uL (4.8-10.8)
[2022-11-09 07:29] LABS: Glucose, Whole Blood 218 mg/dL (60-115)
[2022-11-09] MEDS: Fluticasone/Vilanterol 200/25 BLST.W.DEV 1 PUFF INHALE (07:56)
[2022-11-09 07:57] VITALS: RESP 18; O2SAT 96
--- NOTE | 2022-11-09 08:12 | HE.PHANOTE ---
Pharmacy received methadone verification form. Patient gets methadone from [facility] at 35 mg daily, last dose 11/08/22, confirmed by TALON collado with TALON Laird
[2022-11-09 08:13] LABS: Anion Gap 11 (12-20); Blood Urea Nitrogen 8 mg/dL (9-16); Calcium 8.4 mg/dL (8.4-10.2); Carbon Dioxide 25 mmol/L (22-29); Chloride 105 mmol/L (96-108); Cholesterol 193 mg/dL; Creatinine Clr Calc Pharmacy 92.1; Estimated Glomerular Filt Rate > 60; Glucose Random 249 mg/dL (60-115); HDL Cholesterol 27 mg/dL; LDL Cholesterol Calculated 141 mg/dl; Magnesium 1.7 mg/dL (1.6-2.6); Sodium 137 mmol/L (135-145); Triglycerides 127 mg/dL
[2022-11-09] MEDS: Insulin Lispro 100 UNIT/ML 3 ML VIAL SUBCUT ×4 (08:14→20:08)
[2022-11-09] MEDS: Insulin Glargine,Hum.rec.anlog 100 UNIT/ML 10 ML VIAL 25 UNIT SUBCUT ×2 (08:15→20:08)
[2022-11-09] MEDS: 0.9 % Sodium Chloride Flush 3 ML SYRINGE IVFLUSH ×2 (08:15→20:09)
[2022-11-09] MEDS: DULoxetine HCl 30 MG CAPSULE.DR PO (08:15)
[2022-11-09] MEDS: lisinopriL 5 MG TABLET PO (08:16)
[2022-11-09] MEDS: Spironolactone 25 MG TABLET PO (08:16)
[2022-11-09] MEDS: Gabapentin 600 MG TABLET PO ×2 (08:16→20:20)
[2022-11-09] MEDS: clonazePAM 1 MG TABLET PO ×3 (08:16→20:20)
[2022-11-09] MEDS: Lidocaine 4 % Patch ADH..PATCH 1 PATCH TRANSDERMA (08:18)
[2022-11-09] MEDS: Triamcinolone Acet 0.025 % Cream 15 GM TUBE 1 APPL TOPICAL ×2 (08:20→20:08)
[2022-11-09] MEDS: Magnesium Oxide 400 MG TABLET PO ×2 (08:21→20:07)
--- NOTE | 2022-11-09 10:12 | P.CONNP_ITS ---
History of Present Illness Reason for Consult Consult date: 11/09/22 Reason for consult: Proteinuria and edema Chief Complaint Chief complaint: cellulitis History of Present Illness Narrative: 51-year-old woman presenting to the ER with complaints of worsening throbbing pain and swelling to right hand 4th digit.? She reports that she thought there was an abscess and she try to open it up but the site got more swollen and painful.? She reports a history of IV drug use, heroin and reports that she relapsed recently but denies injecting into her hand or fingers.? She also reported lower extremity edema and frequent falls.? She denied fever, chills, nausea, vomiting, diarrhea, recent travel, sick contacts.? No fever leukocytosis noted in the ER.? Positive for opiates and fentanyl.? Elevated blood pressure re adings.? She was given doxycycline, magnesium Toradol and Lasix.? All imaging studies including chest and hand x-ray, head CT and bilateral venous duplex lower extremity ultrasound negative for any acute abnormalities.? Be admitted for further management and treatment of acute cellulitis of right hand. Review of Systems Review of Systems ?Denies any recent fever chills or decrease in appetite ?respiratory denies any shortness of breath coverage production ?cardiovascular denied chest pain ?gastrointestinal denies any dysphagia abdominal pain nausea vomiting or diarrhea ?genitourinary denies any dysuria frequency or hematuria ?musculoskeletal denies any joint pain or swelling ?neuropsych denies any weakness or seizures ?all other systems reviewed are negative ?reports LE edema PMFSH Past Medical History Medical History (Updated 11/09/22 @ 10:15 by Earl Gómez MD) Back pain Bipolar 1 disorder Diabetes mellitus Hepatitis C Hx of cryosurgery of cervix complicating Lumbar disc herniation PPD positive Family History Family History Mother Rheumatoid arthritis CAD (coronary artery disease) Glaucoma Diabetes HTN (hypertension) Maternal Grandmother Cataract Alzheimers disease Father HTN (hypertension) CAD (coronary artery disease) Diabetes Maternal Grandfather Parkinson disease Paternal Grandmother CAD (coronary artery disease) Rheumatoid arthritis Diabetes Paternal Grandfather Diabetes HTN (hypertension) Social History Social History Household Members: Significant Other and Other Household Members Other:: father in law Housing: House Do you presently have visiting nurse or other home services: No Alcohol intake: never Patient Tobacco Use Status: Current everyday Tobacco user Tobacco use type: Cigarette Cigarette Packs Per Day: 0.25 Cigarettes Per Day: 5.0 Years Smoked: 9 Smoked in Last 30 Days: Yes Patient Interested in Nicotine Replacement: No Patient Given Instructions on How to Stop Smoking: No Use of substances other than those prescribed or required for medical reasons: Yes Substance Use Type: Heroin Last Used Substance Other:: around 10/25 relapsed per patient Currently Displaying Signs/Symptoms of Drug Intoxication Withdrawal: No Have you been hit, kicked, punched, or otherwise hurt by someone within the past year? If so, by whom?: No Do you feel safe in your current relationship?: Yes Is there a partner from a previous relationship who is making you feel unsafe now?: No Are you made to feel afraid or neglected: No Advance Directives: No Advance Directives Information Provided: No Advance Directives on File: No Do you have thoughts of harming others: None Do you have a plan to hurt others: No Plan Recently lost weight without trying: No How much weight loss: Not applicable Eating poorly because of decreased appetite: No Nutrition screen score: 0 Nutrition Risks: No Nutritional Risk Patient : No : No Poor oral hygiene: No service: No Meds Allergies Allergy/AdvReac Type Severity Reaction Status Date / Time No Known Allergies Allergy Verified 11/02/22 15:26 Active Medications: Current Medications Acetaminophen (Acetaminophen 325 Mg Tablet) 650 mg PO Q6H PRN PRN Reason: Pain, Mild (Pain Scale 1-3) Albuterol Sulfate (Albuterol Sulfate (0.083%) 2.5 Mg/3 Ml Vial.Neb) 2.5 mg INHALE Q4H PRN PRN Reason: Shortness Of Breath Albuterol Sulfate (Albuterol Sulfate 90 Mcg 8 Gm Inhaler) 2 puff INHALE Q6H PRN PRN Reason: Shortness Of Breath Clonazepam (Clonazepam 1 Mg Tablet) 1 mg PO TID [facility] Last Admin: 11/09/22 08:16 Dose: 1 mg Clonidine HCl (Clonidine Hcl 0.1 Mg Tablet) 0.1 mg PO BEDTIME [facility]; Protocol Last Admin: 11/08/22 21:32 Dose: Not Given Duloxetine HCl (Duloxetine Hcl 30 Mg Capsule.Dr) 30 mg PO DAILY [facility] Last Admin: 11/09/22 08:15 Dose: 30 mg Fluticasone/Vilanterol (Fluticasone/Vilanterol 200/25 Blst.W.Dev) 1 puff INHALE RDAILY [facility] Last Admin: 11/09/22 07:56 Dose: 1 puff Furosemide (Furosemide 20 Mg Tablet) 20 mg PO DAILY PRN; Protocol PRN Reason: Edema Gabapentin (Gabapentin 600 Mg Tablet) 600 mg PO BID PRN PRN Reason: Pain, Moderate (Pain Scale 4-6 Last Admin: 11/09/22 08:16 Dose: 600 mg Glucose (Glucose Gel 15 Gm Gel..Gram.) 15 gm PO Q15M PRN; Protocol PRN Reason: per Hypoglycemia Standing Ord. Piperacillin Sod/Tazobactam (Sod 3.375 gm/ Sodium Chloride) 50 mls @ 100 mls/hr IV Q6H [facility] Last Infusion: 11/09/22 06:15 Dose: Infused Doxycycline Hyclate 100 mg/ (Sodium Chloride) 250 mls @ 166.67 mls/hr IV Q12H [facility] Last Infusion: 11/09/22 02:26 Dose: Infused Dextrose (D10) 250 mls @ 750 mls/hr IV Q15M PRN; Protocol PRN Reason: per Hypoglycemia Standing Ord. Insulin Glargine (Insulin Glargine,Hum.Rec.Anlog 100 Unit/Ml 10 Ml Vial) 25 unit SUBCUT BEDTIME [facility] Last Admin: 11/08/22 21:32 Dose: 25 unit Insulin Glargine (Insulin Glargine,Hum.Rec.Anlog 100 Unit/Ml 10 Ml Vial) 25 unit SUBCUT DAILY [facility] Last Admin: 11/09/22 08:15 Dose: 25 unit Insulin Human Lispro (Insulin Lispro 100 Unit/Ml 3 Ml Vial) 0 unit SUBCUT QIDACHS [facility]; Protocol Last Admin: 11/09/22 08:14 Dose: 4 unit Lidocaine (Lidocaine 4 % Patch Adh..Patch) 1 patch TRANSDERMA DAILY [facility]; Protocol Last Admin: 11/09/22 08:18 Dose: 1 patch Lisinopril (Lisinopril 5 Mg Tablet) 5 mg PO DAILY [facility]; Protocol Last Admin: 11/09/22 08:16 Dose: 5 mg Magnesium Oxide (Magnesium Oxide 400 Mg Tablet) 400 mg PO BID [facility] Last Admin: 11/09/22 08:21 Dose: 400 mg Morphine Sulfate (Morphine Sulfate 2 Mg/Ml Cartridge) 1 mg IVPUSH Q4H PRN; Protocol PRN Reason: Pain, Mild (Pain Scale 1-3) Last Admin: 11/09/22 05:29 Dose: 1 mg Nicotine Polacrilex (Nicotine Polacrilex 2 Mg Gum) 2 mg BUCCAL Q2H PRN PRN Reason: withdrawal Omeprazole (Omeprazole 40 Mg Capsule.Dr) 40 mg PO DAILY@0630 [facility] Last Admin: 11/09/22 05:27 Dose: 40 mg Ondansetron HCl (Ondansetron Hcl 4 Mg/2 Ml Vial) 4 mg IVPUSH Q8H PRN PRN Reason: Nausea and Vomiting Sodium Chloride (0.9 % Sodium Chloride Flush 3 Ml Syringe) 3 ml IVFLUSH QSHIFT [facility] Last Admin: 11/09/22 08:15 Dose: 3 ml Spironolactone (Spironolactone 25 Mg Tablet) 25 mg PO DAILY [facility]; Protocol Last Admin: 11/09/22 08:16 Dose: 25 mg Triamcinolone Acetonide (Triamcinolone Acet 0.025 % Cream 15 Gm Tube) 1 appl TOPICAL BID [facility]; Protocol Last Admin: 11/09/22 08:20 Dose: 1 appl Zolpidem Tartrate (Zolpidem Tartrate 5 Mg Tablet) 5 mg PO BEDTIME PRN PRN Reason: Sleep Last Admin: 11/08/22 21:20 Dose: 5 mg Home Medications Medication Instructions Recorded Confirmed Last Taken Type albuterol sulfate 2.5 mg/3 mL 2.5 mg inhalation Q4H PRN 11/02/22 11/08/22 Unknown History (0.083 %) solution for nebulization Shortness Of Breath albuterol sulfate 90 mcg/actuation 2 inh inhalation Q6H PRN Shortness 11/02/22 11/08/22 Unknown History breath activated powder inhaler Of Breath (ProAir RespiClick) clonazepam 1 mg tablet 1 mg PO TID 11/02/22 11/08/22 Unknown History clonidine HCl 0.1 mg tablet 0.1 mg PO BEDTIME 11/02/22 11/08/22 Unknown History duloxetine 30 mg capsule,delayed 30 mg PO DAILY 11/02/22 11/08/22 Unknown History release fluticasone propionate 230 2 puff inhalation BID 11/02/22 11/08/22 Unknown History mcg-salmeterol 21 mcg/actuation HFA inhaler (Advair HFA) furosemide 20 mg tablet 20 mg PO DAILY PRN Edema 11/02/22 11/08/22 Unknown History gabapentin 600 mg tablet 600 mg PO BID PRN Pain 11/02/22 11/08/22 Unknown History insulin glargine 100 unit/mL (3 25 unit subcut DAILY 11/02/22 11/08/22 Unknown History mL) subcutaneous pen (Lantus Solostar U-100 Insulin) insulin lispro 100 unit/mL 5 - 25 unit subcut TID 11/02/22 11/08/22 Unknown History subcutaneous solution lidocaine 5 % topical patch 1 patch topical DAILY 11/02/22 11/08/22 Unknown History magnesium oxide 400 mg (241.3 mg 400 mg PO BID 11/02/22 11/08/22 Unknown History magnesium) tablet methadone 5 mg/5 mL oral solution 35 mg PO DAILY 11/02/22 11/09/22 11/08/22 Hist ory omeprazole 40 mg capsule,delayed 40 mg PO DAILY 11/02/22 11/08/22 Unknown History release spironolactone 25 mg tablet 25 mg PO DAILY 11/02/22 11/08/22 Unknown History triamcinolone acetonide 0.025 % 1 appl topical BID 11/02/22 11/08/22 Unknown History topical cream zolpidem 12.5 mg tablet,extended 12.5 mg PO BEDTIME PRN Sleep 11/02/22 11/08/22 Unknown History release,multiphase insulin glargine 100 unit/mL (3 25 unit subcut BEDTIME 11/08/22 11/08/22 Unknown History mL) subcutaneous pen (Lantus Solostar U-100 Insulin) methocarbamol 750 mg tablet 750 mg PO QID PRN Pain 11/08/22 11/08/22 Unknown History Physical Exam Vital Signs: Last Vital Signs Temp 98.3 F 11/09/22 07:17 Pulse 82 11/09/22 07:17 Resp 18 11/09/22 07:57 BP 181/94 H 11/09/22 07:17 Pulse Ox 98 11/09/22 07:17 O2 Del Method Room Air 11/09/22 07:17 BMI result Body Mass Index 35.2 Appearing in no acute distress ?head is normocephalic atraumatic ?eyes pupils are PERRLA sclera is anicteric ?mouth throat mucous membranes are intact and moist ?neck is supple no lymphadenopathy, no JVD noted ?lung sounds are clear to auscultation ?heart regular rate rhythm, clear? S1, S2 ?positive bowel sounds, abdomen is soft, nontender ?neuro patient is alert x3, no focal deficits ?Right hand erythema and edema ?dependant LE edema Results Lab Results 11/09/22 06:03 11/09/22 06:03 Lab results: Chemistry 11/08/22 11/09/22 11:58 06:03 Sodium 137 137 Potassium 4.1 4.0 Carbon Dioxide 25 25 BUN 7 L 8 L Creatinine 0.83 0.79 Calcium 8.3 L 8.4 Hematology 11/08/22 11/09/22 10:53 06:03 WBC 6.1 5.5 Hgb 11.2 L 11.1 L Plt Count 153 L 141 L Urinalysis 11/08/22 11:58 Urine Color Yellow Urine Appearance Clear Urine pH 5.5 Ur Specific Parkin 1.010 Urine Protein 100 (2+) H Urine Glucose (UA) 250 H Urine Ketones Negative Urine Blood Trace H Urine Nitrite Negative Ur Leukocyte Esterase Negative Urine RBC 0-2 Urine WBC 0-5 Ur Squamous Epith Cells 6-10 Hyaline Casts 0-2 Assessment and Plan (1) Mariselaon of finger: Status: Acute (2) Type 2 diabetes mellitus with diabetic neuropathy: Status: Acute (3) Proteinuria: Status: Acute Plan 51 yr old woman with proteinuria in a setting of DM Most likely has diabetic kidney disease Non diabetic causes should be ruled out as well- although seem sless likely Renal function is stable Suggest Check urine Pro: cr SPEP Anti-PLA2R C3/C4 Hepatitis panel Optimize blood sugar Optimize BP Maximize ACEinhibition - Increase LISINOPRIL to 10 mg QD Optimize diuretics - Lasix 20mg PO BID + Spironolactone Low salt diet Watch POTASSIUM Continue to avoid nephrotoxins Time Spent With Patient Time: Total time managing care of this patient today ____ minutes. Procedures Date of Service Date of Service: 11/09/22
--- NOTE | 2022-11-09 10:41 | MHC.CLN ---
NUTRITION PATIENT WITH HX IV DRUG USE AND POOR NUTRITION SUSPECTED. CHANGED SUPPLEMENT TO ENSURE MAX BID. PROVIDES ADDITIONAL 300 KCALS, 60 G PROTEIN. LOW CARB, HIGH PROTEIN SUPPLEMENT APPROPRIATE WITH DM AND SKIN INFECTION.
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
[2022-11-09 11:16] LABS: Glucose, Whole Blood 254 mg/dL (60-115)
[2022-11-09] MEDS: methADONE HCl 20 MG/2 ML ORAL.CONC 35 MG PO (11:20)
--- NOTE | 2022-11-09 11:48 | MHC.CM.PN ---
pt lives alone has no servis pt is on methadone is ismael vax x 5 dc plan home no servcies family to transport home
--- NOTE | 2022-11-09 13:57 | P.CONOP_ITS ---
History of Present Illness HPI Consult date: 11/09/22 Chief complaint: cellulitis Narrative: 51-year-old woman who was admitted to the medical service after presenting to the ER with complaints of worsening throbbing pain and swelling to right hand 4th digit.? She reports that she thought there was an abscess and she try to open it up but the site got more swollen and painful.? She reports a history of IV drug use, heroin and reports that she relapsed recently but denies injecting into her hand or fingers.? Positive for opiates and fentanyl.??She was given doxycycline and Zosyn, and orthopedics was consulted for further recommendat ions. [facility] Past Medical History Medical History (Updated 11/09/22 @ 10:15 by Earl Gómez MD) Back pain Bipolar 1 disorder Diabetes mellitus Hepatitis C Hx of cryosurgery of cervix complicating Lumbar disc herniation PPD positive Family History Family History Mother Rheumatoid arthritis CAD (coronary artery disease) Glaucoma Diabetes HTN (hypertension) Maternal Grandmother Cataract Alzheimers disease Father HTN (hypertension) CAD (coronary artery disease) Diabetes Maternal Grandfather Parkinson disease Paternal Grandmother CAD (coronary artery disease) Rheumatoid arthritis Diabetes Paternal Grandfather Diabetes HTN (hypertension) Social History Social History Household Members: Significant Other and Other Household Members Other:: father in law Housing: House Do you presently have visiting nurse or other home services: No Alcohol intake: never Patient Tobacco Use Status: Current everyday Tobacco user Tobacco use type: Cigarette Cigarette Packs Per Day: 0.25 Cigarettes Per Day: 5.0 Years Smoked: 9 Smoked in Last 30 Days: Yes Patient Interested in Nicotine Replacement: No Patient Given Instructions on How to Stop Smoking: No Use of substances other than those prescribed or required for medical reasons: Yes Substance Use Type: Heroin Last Used Substance Other:: around 10/25 relapsed per patient Currently Displaying Signs/Symptoms of Drug Intoxication Withdrawal: No Have you been hit, kicked, punched, or otherwise hurt by someone within the past year? If so, by whom?: No Do you feel safe in your current relationship?: Yes Is there a partner from a previous relationship who is making you feel unsafe now?: No Are you made to feel afraid or neglected: No Advance Directives: No Advance Directives Information Provided: No Advance Directives on File: No Do you have thoughts of harming others: None Do you have a plan to hurt others: No Plan Recently lost weight without trying: No How much weight loss: Not applicable Eating poorly because of decreased appetite: No Nutrition screen score: 0 Nutrition Risks: No Nutritional Risk Patient : No : No Poor oral hygiene: No service: No Meds Allergies Allergy/AdvReac Type Severity Reaction Status Date / Time No Known Allergies Allergy Verified 11/02/22 15:26 Active Medications: Current Medications Acetaminophen (Acetaminophen 325 Mg Tablet) 650 mg PO Q6H PRN PRN Reason: Pain, Mild (Pain Scale 1-3) Albuterol Sulfate (Albuterol Sulfate (0.083%) 2.5 Mg/3 Ml Vial.Neb) 2.5 mg INHALE Q4H PRN PRN Reason: Shortness Of Breath Albuterol Sulfate (Albuterol Sulfate 90 Mcg 8 Gm Inhaler) 2 puff INHALE Q6H PRN PRN Reason: Shortness Of Breath Clonazepam (Clonazepam 1 Mg Tablet) 1 mg PO TID [facility] Last Admin: 11/09/22 08:16 Dose: 1 mg Clonidine HCl (Clonidine Hcl 0.1 Mg Tablet) 0.1 mg PO BEDTIME [facility]; Protocol Last Admin: 11/08/22 21:32 Dose: Not Given Duloxetine HCl (Duloxetine Hcl 30 Mg Capsule.Dr) 30 mg PO DAILY [facility] Last Admin: 11/09/22 08:15 Dose: 30 mg Fluticasone/Vilanterol (Fluticasone/Vilanterol 200/25 Blst.W.Dev) 1 puff INHALE RDAILY [facility] Last Admin: 11/09/22 07:56 Dose: 1 puff Furosemide (Furosemide 20 Mg Tablet) 20 mg PO BID@0900,1800 [facility]; Protocol Gabapentin (Gabapentin 600 Mg Tablet) 600 mg PO BID PRN PRN Reason: Pain, Moderate (Pain Scale 4-6 Last Admin: 11/09/22 08:16 Dose: 600 mg Glucose (Glucose Gel 15 Gm Gel..Gram.) 15 gm PO Q15M PRN; Protocol PRN Reason: per Hypoglycemia Standing Ord. Piperacillin Sod/Tazobactam (Sod 3.375 gm/ Sodium Chloride) 50 mls @ 100 mls/hr IV Q6H [facility] Last Admin: 11/09/22 12:30 Dose: 1,009 mls/hr Doxycycline Hyclate 100 mg/ (Sodium Chloride) 250 mls @ 166.67 mls/hr IV Q12H [facility] Last Admin: 11/09/22 13:36 Dose: 166.67 mls/hr Dextrose (D10) 250 mls @ 750 mls/hr IV Q15M PRN; Protocol PRN Reason: per Hypoglycemia Standing Ord. Insulin Glargine (Insulin Glargine,Hum.Rec.Anlog 100 Unit/Ml 10 Ml Vial) 25 unit SUBCUT BEDTIME [facility] Last Admin: 11/08/22 21:32 Dose: 25 unit Insulin Glargine (Insulin Glargine,Hum.Rec.Anlog 100 Unit/Ml 10 Ml Vial) 25 unit SUBCUT DAILY [facility] Last Admin: 11/09/22 08:15 Dose: 25 unit Insulin Human Lispro (Insulin Lispro 100 Unit/Ml 3 Ml Vial) 0 unit SUBCUT QIDACHS [facility]; Protocol Last Admin: 11/09/22 12:28 Dose: 6 unit Lidocaine (Lidocaine 4 % Patch Adh..Patch) 1 patch TRANSDERMA DAILY [facility]; Protocol Last Admin: 11/09/22 08:18 Dose: 1 patch Lisinopril (Lisinopril 10 Mg Tablet) 10 mg PO DAILY [facility]; Protocol Magnesium Oxide (Magnesium Oxide 400 Mg Tablet) 400 mg PO BID [facility] Last Admin: 11/09/22 08:21 Dose: 400 mg Methadone HCl (Methadone Hcl 20 Mg/2 Ml Oral.Conc) 35 mg PO DAILY [facility] Last Admin: 11/09/22 11:20 Dose: 35 mg Morphine Sulfate (Morphine Sulfate 2 Mg/Ml Cartridge) 1 mg IVPUSH Q4H PRN; Protocol PRN Reason: Pain, Mild (Pain Scale 1-3) Last Admin: 11/09/22 11:13 Dose: 1 mg Nicotine Polacrilex (Nicotine Polacrilex 2 Mg Gum) 2 mg BUCCAL Q2H PRN PRN Reason: withdrawal Omeprazole (Omeprazole 40 Mg Capsule.Dr) 40 mg PO DAILY@0630 [facility] Last Admin: 11/09/22 05:27 Dose: 40 mg Ondansetron HCl (Ondansetron Hcl 4 Mg/2 Ml Vial) 4 mg IVPUSH Q8H PRN PRN Reason: Nausea and Vomiting Sodium Chloride (0.9 % Sodium Chloride Flush 3 Ml Syringe) 3 ml IVFLUSH QSHIFT [facility] Last Admin: 11/09/22 08:15 Dose: 3 ml Spironolactone (Spironolactone 25 Mg Tablet) 25 mg PO DAILY [facility]; Protocol Last Admin: 11/09/22 08:16 Dose: 25 mg Triamcinolone Acetonide (Triamcinolone Acet 0.025 % Cream 15 Gm Tube) 1 appl TOPICAL BID [facility]; Protocol Last Admin: 11/09/22 08:20 Dose: 1 appl Zolpidem Tartrate (Zolpidem Tartrate 5 Mg Tablet) 5 mg PO BEDTIME PRN PRN Reason: Sleep Last Admin: 11/08/22 21:20 Dose: 5 mg Home Medications Medication Instructions Recorded Confirmed Last Taken Type albuterol sulfate 2.5 mg/3 mL 2.5 mg inhalation Q4H PRN 11/02/22 11/08/22 Unknown History (0.083 %) solution for nebulization Shortness Of Breath albuterol sulfate 90 mcg/actuation 2 inh inhalation Q6H PRN Shortness 11/02/22 11/08/22 Unknown History breath activated powder inhaler Of Breath (ProAir RespiClick) clonazepam 1 mg tablet 1 mg PO TID 11/02/22 11/08/22 Unknown History clonidine HCl 0.1 mg tablet 0.1 mg PO BEDTIME 11/02/22 11/08/22 Unknown History duloxetine 30 mg capsule,delayed 30 mg PO DAILY 11/02/22 11/08/22 Unknown History release fluticasone propionate 230 2 puff inhalation BID 11/02/22 11/08/22 Unknown History mcg-salmeterol 21 mcg/actuation HFA inhaler (Advair HFA) furosemide 20 mg tablet 20 mg PO DAILY PRN Edema 11/02/22 11/08/22 Unknown History gabapentin 600 mg tablet 600 mg PO BID PRN Pain 11/02/22 11/08/22 Unknown History insulin glargine 100 unit/mL (3 25 unit subcut DAILY 11/02/22 11/08/22 Unknown History mL) subcutaneous pen (Lantus Solostar U-100 Insulin) insulin lispro 100 unit/mL 5 - 25 unit subcut TID 11/02/22 11/08/22 Unknown History subcutaneous solution lidocaine 5 % topical patch 1 patch topical DAILY 11/02/22 11/08/22 Unknown History magnesium oxide 400 mg (241.3 mg 400 mg PO BID 11/02/22 11/08/22 Unknown History magnesium) tablet methadone 5 mg/5 mL oral solution 35 mg PO DAILY 11/02/22 11/09/22 11/08/22 History omeprazole 40 mg capsule,delayed 40 mg PO DAILY 11/02/22 11/08/22 Unknown History release spironolactone 25 mg tablet 25 mg PO DAILY 11/02/22 11/08/22 Unknown History triamcinolone acetonide 0.025 % 1 appl topical BID 11/02/22 11/08/22 Unknown History topical cream zolpidem 12.5 mg tablet,extended 12.5 mg PO BEDTIME PRN Sleep 11/02/22 11/08/22 Unknown History release,multiphase insulin glargine 100 unit/mL (3 25 unit subcut BEDTIME 11/08/22 11/08/22 Unknown History mL) subcutaneous pen (Lantus Solostar U-100 Insulin) methocarbamol 750 mg tablet 750 mg PO QID PRN Pain 11/08/22 11/08/22 Unknown History Physical Exam Vital Signs: Vital Signs: Last Vital Signs Temp 98.3 F 11/09/22 07:17 Pulse 82 11/09/22 07:17 Resp 18 11/09/22 07:57 BP 181/94 H 11/09/22 07:17 Pulse Ox 98 11/09/22 07:17 O2 Del Method Room Air 11/09/22 07:17 BMI result Body Mass Index 35.2 Extrem: Other: Right ring finger felon located over the pad of the right ring finger with purulance, no open area, no drainage. She has swelling which extends down the finger into the proximal phalanx with significant tenderness. The tenderness does not appear to be within the flexor tendon sheath, rather due to the swelling. No pain within the palmar web spaces. No pain or swelling into the thenar eminance. No pain with passive extension. NVI. Results Labs 11/09/22 06:03 11/09/22 06:03 Labs: Abnormal lab results 11/08/22 11/09/22 11/09/22 Range/Units 20:21 06:03 06:03 RBC 4.03 L (4.20-5.50) X10*6/uL Hgb 11.1 L (12.0-16.0) g/dl Hct 32.3 L (37.0-47.0) % Plt Count 141 L (160-400) X10*3/uL MPV 9.0 L (9.4-12.3) fL Anion Gap 11 L (12-20) BUN 8 L (9-16) mg/dL POC Glucose 431 H* (60-115) mg/dL Random Glucose 249 H (60-115) mg/dL 11/09/22 11/09/22 Range/Units 07:23 11:06 RBC (4.20-5.50) X10*6/uL Hgb (12.0-16.0) g/dl Hct (37.0-47.0) % Plt Count (160-400) X10*3/uL MPV (9.4-12.3) fL Anion Gap (12-20) BUN (9-16) mg/dL POC Glucose 218 H 254 H (60-115) mg/dL Random Glucose (60-115) mg/dL H & H 11/08/22 11/09/22 Range/Units 10:53 06:03 Hgb 11.2 L 11.1 L (12.0-16.0) g/dl Hct 32.5 L 32.3 L (37.0-47.0) % All other labs normal. Diagnostic results Wrist/Hand x-ray: image reviewed (xrays of the right hand obtained on 11/08/22: No evidence of foreign body or fracture ) Assessment and Plan (1) Felon of finger: Status: Acute Plan I discussed the case with Dr. Melendez. I discussed the extent of the infection to the patient and options available. Given the extent of the infection and worsening symptoms, it is recommended that take her to the OR for I&D. I expl ained to the patient the procedure in detail along with the risks benefits and alternatives. Risks including but not limited to ongoing infection, wound breakdown, stiffness, on going pain. I explained the importance of compliance with abx, wound care and f/u appts post op. She does understand all this and would like to proceed with I&D right ring finger with Dr. Melendez. She will be NPO after midnight. Time Spent With Patient Time: Total time managing care of this patient today ____ minutes. Procedures Date of Service Date of Service: 11/09/22
[2022-11-09 14:02] VITALS: BP 193/93; PULSE 94; RESP 20; O2SAT 95
[2022-11-09] MEDS: amLODIPine Besylate 2.5 MG TABLET PO (14:39)
--- NOTE | 2022-11-09 15:30 | PC.NURSE ---
Pt unplugging camera. Pt refusing safety and fall precautions at this time. Pt upset, agitated, yelling and wanting to leave. Pt pulled out IV. Dr. Israel at bedside during this time; pt agreeing to stay. New IV placed by nursing metal fabricating supervisor. Will continue to do hourly rounding and monitor pt.
[2022-11-09 16:00] VITALS: BP 188/92; PULSE 89; RESP 16; TEMP 36.2; O2SAT 97
--- NOTE | 2022-11-09 16:00 | HO.PM.IMPN ---
Subjective Subjective Date of Service: 11/09/22 Interval History: Finger cellulitis, uncontrolled diabetes, proteinuria,uncontrolled htn Review of Systems Cellulitis and seems similar to the yesterday unchanged. No fever Physical Exam Vital Signs: Vital Signs: Last Vital Signs Temp 98.3 F 11/09/22 07:17 Pulse 94 11/09/22 14:02 Resp 20 11/09/22 14:02 BP 193/93 H 11/09/22 14:02 Pulse Ox 95 11/09/22 14:02 O2 Del Method Room Air 11/09/22 14:02 BMI result Body Mass Index 35.2 Appearance: Alert.? Oriented X3.? not in distress.? cvs: rrr, [id number] . res: clear to auscultation ,no rhonchii or wheezing abd: no rebound or guarding ,nt, bs present. ext pulses present , no cyanosis, right sided 4th finger -area similarto yesterday -please see picture h&p . neuro: axo3 , nonfocal. Objective Data Active Medications Acetaminophen (Acetaminophen 325 Mg Tablet) 650 mg PO Q6H PRN PRN Reason: Pain, Mild (Pain Scale 1-3) Albuterol Sulfate (Albuterol Sulfate (0.083%) 2.5 Mg/3 Ml Vial.Neb) 2.5 mg INHALE Q4H PRN PRN Reason: Shortness Of Breath Albuterol Sulfate (Albuterol Sulfate 90 Mcg 8 Gm Inhaler) 2 puff INHALE Q6H PRN PRN Reason: Shortness Of Breath Clonazepam (Clonazepam 1 Mg Tablet) 1 mg PO TID [facility] Last Admin: 11/09/22 14:39 Dose: 1 mg Documented By: MITA Clonidine HCl (Clonidine Hcl 0.1 Mg Tablet) 0.1 mg PO BEDTIME [facility]; Protocol Last Admin: 11/08/22 21:32 Dose: Not Given Documented By: GARRETT Non-Admin Reason: Patient Refused Duloxetine HCl (Duloxetine Hcl 30 Mg Capsule.) 30 mg PO DAILY [facility] Last Admin: 11/09/22 08:15 Dose: 30 mg Documented By: MITA Fluticasone/Vilanterol (Fluticasone/Vilanterol 200/25 Blst.W.Dev) 1 puff INHALE RDAILY [facility] Last Admin: 11/09/22 07:56 Dose: 1 puff Documented By: RADHA Furosemide (Furosemide 20 Mg Tablet) 20 mg PO BID@0900,1800 [facility]; Protocol Gabapentin (Gabapentin 600 Mg Tablet) 600 mg PO BID PRN PRN Reason: Pain, Moderate (Pain Scale 4-6 Last Admin: 11/09/22 08:16 Dose: 600 mg Documented By: MITA Glucose (Glucose Gel 15 Gm Gel..Gram.) 15 gm PO Q15M PRN; Protocol PRN Reason: per Hypoglycemia Standing Ord. Piperacillin Sod/Tazobactam (Sod 3.375 gm/ Sodium Chloride) 50 mls @ 100 mls/hr IV Q6H [facility] Last Infusion: 11/09/22 14:09 Dose: 100 mls/hr Documented By: MITA Doxycycline Hyclate 100 mg/ (Sodium Chloride) 250 mls @ 166.67 mls/hr IV Q12H [facility] Last Infusion: 11/09/22 15:10 Dose: 166.67 mls/hr Documented By: MITA Dextrose (D10) 250 mls @ 750 mls/hr IV Q15M PRN; Protocol PRN Reason: per Hypoglycemia Standing Ord. Insulin Glargine (Insulin Glargine,Hum.Rec.Anlog 100 Unit/Ml 10 Ml Vial) 25 unit SUBCUT BEDTIME [facility] Last Admin: 11/08/22 21:32 Dose: 25 unit Documented By: GARRETT Insulin Glargine (Insulin Glargine,Hum.Rec.Anlog 100 Unit/Ml 10 Ml Vial) 25 unit SUBCUT DAILY [facility] Last Admin: 11/09/22 08:15 Dose: 25 unit Documented By: MITA Insulin Human Lispro (Insulin Lispro 100 Unit/Ml 3 Ml Vial) 0 unit SUBCUT QIDACHS [facility]; Protocol Last Admin: 11/09/22 12:28 Dose: 6 unit Documented By: MITA Lidocaine (Lidocaine 4 % Patch Adh..Patch) 1 patch TRANSDERMA DAILY [facility]; Protocol Last Admin: 11/09/22 08:18 Dose: 1 patch Documented By: MITA Lisinopril (Lisinopril 10 Mg Tablet) 10 mg PO DAILY [facility]; Protocol Magnesium Oxide (Magnesium Oxide 400 Mg Tablet) 400 mg PO BID [facility] Last Admin: 11/09/22 08:21 Dose: 400 mg Documented By: MITA Methadone HCl (Methadone Hcl 20 Mg/2 Ml Oral.Conc) 35 mg PO DAILY [facility] Last Admin: 11/09/22 11:20 Dose: 35 mg Documented By: MITA Morphine Sulfate (Morphine Sulfate 2 Mg/Ml Cartridge) 1 mg IVPUSH Q4H PRN; Protocol PRN Reason: Pain, Mild (Pain Scale 1-3) Last Admin: 11/09/22 11:13 Dose: 1 mg Documented By: MITA Nicotine Polacrilex (Nicotine Polacrilex 2 Mg Gum) 2 mg BUCCAL Q2H PRN PRN Reason: withdrawal Omeprazole (Omeprazole 40 Mg Capsule.Dr) 40 mg PO DAILY@0630 [facility] Last Admin: 11/09/22 05:27 Dose: 40 mg Documented By: GARRETT Ondansetron HCl (Ondansetron Hcl 4 Mg/2 Ml Vial) 4 mg IVPUSH Q8H PRN PRN Reason: Nausea and Vomiting Sodium Chloride (0.9 % Sodium Chloride Flush 3 Ml Syringe) [facility] Last Admin: 11/09/22 08:15 Dose: 3 ml Documented By: MITA Spironolactone (Spironolactone 25 Mg Tablet) 25 mg PO DAILY [facility]; Protocol Last Admin: 11/09/22 08:16 Dose: 25 mg Documented By: MITA Triamcinolone Acetonide (Triamcinolone Acet 0.025 % Cream 15 Gm Tube) 1 appl TOPICAL BID [facility]; Protocol Last Admin: 11/09/22 08:20 Dose: 1 appl Documented By: MITA Zolpidem Tartrate (Zolpidem Tartrate 5 Mg Tablet) 5 mg PO BEDTIME PRN PRN Reason: Sleep Last Admin: 11/08/22 21:20 Dose: 5 mg Documented By: GARRETT Labs 11/09/22 06:03 11/09/22 06:03 Labs: Laboratory Results - last 24 hr 11/08/22 11/09/22 11/09/22 20:21 06:03 06:03 MCV 80.1 MCH 27.5 MCHC 34.4 RDW 14.9 Plt Count 141 L MPV 9.0 L Immature Gran % (Auto) 0.4 Neut % (Auto) 64.3 Lymph % (Auto) 25.3 [place] % (Auto) 5.3 Eos % (Auto) 4.0 Baso % (Auto) 0.7 Lymph # (Auto) 1.4 [place] # (Auto) 0.3 Eos # (Auto) 0.2 Baso # (Auto) 0.0 Abs Immat Gran (auto) 0.02 Absolute Neuts (auto) 3.5 Absolute Nucleated RBC 0.000 Nucleated RBC % (auto) 0.0 Anion Gap 11 L Estim Creat Clear Calc 92.1 Estimated GFR > 60 POC Glucose 431 H* Random Glucose 249 H Calcium 8.4 Magnesium 1.7 Triglycerides 127 Cholesterol 193 LDL Cholesterol, Calc 141 HDL Cholesterol 27 11/09/22 11/09/22 07:23 11:06 MCV MCH MCHC RDW Plt Count MPV Immature Gran % (Auto) Neut % (Auto) Lymph % (Auto) [place] % (Auto) Eos % (Auto) Baso % (Auto) Lymph # (Auto) [place] # (Auto) Eos # (Auto) Baso # (Auto) Abs Immat Gran (auto) Absolute Neuts (auto) Absolute Nucleated RBC Nucleated RBC % (auto) Anion Gap Estim Creat Clear Calc Estimated GFR POC Glucose 218 H 254 H Random Glucose Calcium Magnesium Triglycerides Cholesterol LDL Cholesterol, Calc HDL Cholesterol Imaging Chest x-ray: Radiologist's impression: Impressions Venous Duplex 11/08/22 14:34 IMPRESSION: 1. No DVT demonstrated in the bilateral lower extremity. 2. Within the left groin are prominent lymph nodes measuring 3.2 x 0.7 x 3.0 cm and 1.7 x 0.9 x 2.1 cm. Microbiology Microbiology Results: Microbiology 11/08/22 11:58 Blood Culture - Preliminary Blood - Venous No growth after 24 hours. 11/08/22 11:58 Blood Culture - Preliminary Blood - Venous No growth after 24 hours. Assessment and Plan (1) Felon of finger: Status: Acute (2) Proteinuria: Status: Acute Plan 51-year-old woman admitted with cellulitis of right and 4th digit requiring I&D. Right hand 4th digit cellulitis/felon finger Finger cellulitis looks seems, blood culture pending, says continue Zosyn and doxycycline, may require I&D,Pain management Elevate extremity to help decrease swelling and pain keep clean and dry orthopedic surgery consultation-possible I&D. Proteinurea with noted lower extremity edema-multifactorial ( dm ,htn) check lipid panel,24 hour urine On Lasix and spironolactone at home ,lisinopril added CHRIS stockings for LE edema nephrology consult-added renal studies. elevated blood pressure readings no noted hx of HTN lisinopril 5 mg added,given amlodipine 2.5 mg will adjust lisinopril for morning follow BP closely Hypomagnesemia Repleted ,improving, continue po replacements. Diabetes mellitus type 2: fs seems improving Sliding scale, ADA diet, long-acting insulin Chronic back pain-Lidocaine patches IV drug use:Reports recent relapse using heroin drug screen: positive for fentanyl Addiction medicine consultation On methadone, clinic verification required. Asthma No exacerbation Continue home inhalers Mental health Continue home medications Smoker Nicotine replacement Obesity.? BMI 31.9 Weight management DVT prophylaxis with heparin inpatient need: right hand digit cellulitis requiring IV antibiotics and likely surgical intervention as well as workup for proteinuria and edema. Time Spent With Patient Time: Total time managing care of this patient today ____ minutes. Quality Stroke Does the patient have a stroke diagnosis?: No VTE Prior VTE?: No VTE Risk Level:: Medical - moderate - high VTE Device Contraindication: Treatment Not Indicated VTE Drug Contraindication: N/A - Med Ordered
--- NOTE | 2022-11-09 16:04 | PC.NURSE ---
At 1030 this am pt was observed walking around unit. Pt was informed that she could not go off. She stated understanding. A few minutes later, it was evident that she left unit. SHUTTLE VENEERING SUPERVISOR went out to find her. security also called. by 1035 pt was escorted back to her room. Her daughter and granddaughter were with her. Pt stated she went out for a cigarette. Also pt stated that she fell when outside. Claimed she landed on her right flank. no rednes or burising noted. Pt was deemed high fall risk on admission but was refusing camera and bed alarms. Dr Israel made aware of incident. Jermaine Burgos also made aware. Pt was made aware that she would have to be deemed high fall risk again and agreed to camera and bed alarms. Later around 1330, it was noted that pt was very drowsy. Pt denied using and street drugs. She stated she did not get any sleep last night. Pt was seen by Kathryn Rolon from addiction team. Pt very angry with me. for suspecting that she may have used. By 1500 pt removed her iv and was attempting to leave AMA. Dr Israel convinced pt to stay.
[2022-11-09 16:51] LABS: Glucose, Whole Blood 232 mg/dL (60-115)
[2022-11-09] MEDS: Furosemide 20 MG TABLET PO (17:15)
[2022-11-09] MEDS: Magnesium Oxide 400 MG TABLET 800 MG PO (17:16)
[2022-11-09 19:31] VITALS: BP 176/86; PULSE 80; RESP 16; TEMP 36.2; O2SAT 99
[2022-11-09 19:54] LABS: Creatinine Urine 99.64 mg/dL
[2022-11-09 19:57] LABS: Amphetamine Screen Urine Not Detected (Not Detect); Barbiturates, Urine Not Detected (Not Detect); Benzodiazepines Screen Urine POSITIVE (Not Detect); Cannabinoid Screen Urine Not Detected (Not Detect); Cocaine Screen Urine Not Detected (Not Detect); Fentanyl, urine POSITIVE (Not Detect); Opiate Screen Urine POSITIVE (Not Detect); Phencyclidine Screen Urine Not Detected (Not Detect)
[2022-11-09 19:57] LABS: Glucose, Whole Blood 225 mg/dL (60-115)
[2022-11-09 20:34] LABS: Protein mg/dL 280 mg/dL
[2022-11-09 21:34] LABS: Creatinine, 24Hr Urine 1.1 G/Day (1.0-2.0); Protein 24 Hr Urine 3080 mg/Day (<150); Total Volume 24 Hour Urine 1100 mL
[2022-11-10] VITALS (11 sets, daily range): BP systolic 161–193; BP diastolic 76–94; PULSE 80–86; RESP 14–18; TEMP 36.1–37.3; O2SAT 94–100
[2022-11-10] MEDS: Zolpidem Tartrate 5 MG TABLET PO (00:10)
[2022-11-10] MEDS: Piperacillin Sodium/Tazobactam 3.375 GM in 0.9 % Sodium Chloride 50 ML IV ×4 (00:10→18:36)
[2022-11-10] MEDS: Doxycycline Hyclate 100 MG in 0.9 % Sodium Chloride 250 ML 166.67 MG IV ×2 (00:43→13:26)
[2022-11-10] MEDS: Morphine Sulfate 2 MG/ML CARTRIDGE 1 MG IVPUSH ×4 (03:59→19:39)
[2022-11-10] MEDS: Omeprazole 40 MG CAPSULE.DR PO (05:54)
[2022-11-10 06:51] LABS: Anion Gap 12 (12-20); Blood Urea Nitrogen 9 mg/dL (9-16); Calcium 8.3 mg/dL (8.4-10.2); Carbon Dioxide 25 mmol/L (22-29); Chloride 105 mmol/L (96-108); Estimated Glomerular Filt Rate > 60; Glucose Random 161 mg/dL (60-115); Potassium 3.7 mmol/L (3.3-5.1); Sodium 138 mmol/L (135-145)
[2022-11-10 07:33] LABS: Estimated Average Glucose 249 mg/dL; Hemoglobin A1c % 10.3 %
[2022-11-10 07:49] LABS: Glucose, Whole Blood 149 mg/dL (60-115)
[2022-11-10] MEDS: 0.9 % Sodium Chloride Flush 3 ML SYRINGE IVFLUSH ×2 (08:29→19:44)
[2022-11-10] MEDS: Lidocaine 4 % Patch ADH..PATCH 1 PATCH TRANSDERMA ×2 (08:29→17:18)
[2022-11-10] MEDS: Insulin Glargine,Hum.rec.anlog 100 UNIT/ML 10 ML VIAL 25 UNIT SUBCUT ×2 (08:29→20:34)
[2022-11-10] MEDS: methADONE HCl 20 MG/2 ML ORAL.CONC 35 MG PO (08:30)
[2022-11-10] MEDS: Spironolactone 25 MG TABLET PO (08:30)
[2022-11-10] MEDS: Furosemide 20 MG TABLET PO ×2 (08:30→18:37)
[2022-11-10] MEDS: lisinopriL 10 MG TABLET PO (08:30)
[2022-11-10] MEDS: clonazePAM 1 MG TABLET PO ×3 (08:30→19:38)
[2022-11-10] MEDS: DULoxetine HCl 30 MG CAPSULE.DR PO (08:30)
[2022-11-10] MEDS: Magnesium Oxide 400 MG TABLET PO ×2 (08:37→19:38)
[2022-11-10] MEDS: Triamcinolone Acet 0.025 % Cream 15 GM TUBE 1 APPL TOPICAL ×2 (08:37→19:40)
--- NOTE | 2022-11-10 09:58 | P.CDIM_ITS ---
PROVIDER RESPONSE TEXT: To clarify, the appropriate diagnosis supported by the clinical indicators: Other (explain): unspecified , will add nutrionist eval QUERY TEXT: PHYSICIAN'S DOCUMENTATION REQUEST Date of Query: 11/10/2022 08:05 AM EDT Patient Name: Eileen Alvarez Admit Date: 11/08/2022 Dear Keyonna Israel, A review of the medical record indicates additional documentation may be needed. Please review below and update the documentation accordingly. Documentation includes the diagnosis of malnutrition. H&P: Assessment and plan -some degree of malnutrition likely, add Ensure BID. If possible, please provide additional specificity regarding the severity of the malnutrition using t he above information: Mild Moderate Severe Other (explain) Clinically unable to determine (explain) Thank you, Catherine Edwards, CCS, CDIS Use of terms such as suspected, likely, concern for, or probable (associated with a specific diagnosi s that is being evaluated, monitored, or treated as if it exists) are acceptable and can be coded in the inpatient se tting, when documented at the time of discharge. Please use your independent medical judgment in providing your response. THIS QUERY IS PART OF THE PERMANENT MEDICAL RECORD
--- NOTE | 2022-11-10 10:41 | PM.PNNEP ---
Subjective Subjective Date of Service: 11/10/22 Interval history: Finger cellulitis, uncontrolled diabetes, proteinuria,uncontrolled htn c/o Pain all over the body Physical Exam Vital Signs: Vital Signs: Last Vital Signs Temp 98.2 F 11/10/22 07:37 Pulse 83 11/10/22 07:37 Resp 18 11/10/22 07:37 BP 161/78 H 11/10/22 07:37 Pulse Ox 96 11/10/22 07:37 O2 Del Method Room Air 11/10/22 07:37 BMI result Body Mass Index 35.2 Const: General: no acute distress, alert and awake Orientation/consciousness: patient oriented x3 Eyes: General: appearance normal, both eyes and all related structures Resp: Effort & Inspection: normal respiratory effort and no respiratory distress Cardio: Rate: regular rate GI: Palpation (GI): Soft to palpation, nontender, no guarding and not rigid : General: Yes no CVA tenderness Back/Spine/Pelvis: Back: no CVA tenderness Skin: Rashes: no rashes Neuro: General: patient oriented x3 Extrem: General: Yes edema Objective Data Labs 11/09/22 06:03 11/10/22 06:00 Labs: Laboratory Results - last 24 hr 11/09/22 11/09/22 11/09/22 11:06 16:37 19:25 Sodium Potassium Chloride Carbon Dioxide Anion Gap BUN Creatinine Estim Creat Clear Calc Estimated GFR POC Glucose 254 H 232 H Random Glucose Estimat Average Glucose Hemoglobin A1c % Calcium Ur 24 Hour Volume 1100 Urine Creatinine Ur Creatinine mg/dL 101.10 Ur Creatinine 24 Hour 1.1 Ur Total Protein 24 Hr 3080 H Urine Opiates Screen Urine Fentanyl Screen Ur Barbiturates Screen Ur Phencyclidine Scrn Ur Amphetamines Screen U Benzodiazepines Scrn Urine Cocaine Screen U Marijuana (THC) Screen 11/09/22 11/09/22 11/09/22 19:25 19:25 19:52 Sodium Potassium Chloride Carbon Dioxide Anion Gap BUN Creatinine Estim Creat Clear Calc Estimated GFR POC Glucose 225 H Random Glucose Estimat Average Glucose Hemoglobin A1c % Calcium Ur 24 Hour Volume Urine Creatinine 99.64 Ur Creatinine mg/dL Ur Creatinine 24 Hour Ur Total Protein 24 Hr Urine Opiates Screen POSITIVE H Urine Fentanyl Screen POSITIVE H Ur Barbiturates Screen Not Detected Ur Phencyclidine Scrn Not Detected Ur Amphetamines Screen Not Detected U Benzodiazepines Scrn POSITIVE H Urine Cocaine Screen Not Detected U Marijuana (THC) Screen Not Detected 11/10/22 11/10/22 11/10/22 06:00 06:00 07:34 Sodium 138 Potassium 3.7 Chloride 105 Carbon Dioxide 25 Anion Gap 12 BUN 9 Creatinine 0.75 Estim Creat Clear Calc 97.0 Estimated GFR > 60 POC Glucose 149 H Random Glucose 161 H Estimat Average Glucose 249 Hemoglobin A1c % 10.3 Calcium 8.3 L Ur 24 Hour Volume Urine Creatinine Ur Creatinine mg/dL Ur Creatinine 24 Hour Ur Total Protein 24 Hr Urine Opiates Screen Urine Fentanyl Screen Ur Barbiturates Screen Ur Phencyclidine Scrn Ur Amphetamines Screen U Benzodiazepines Scrn Urine Cocaine Screen U Marijuana (THC) Screen Microbiology Microbiology Results: Microbiology 11/08/22 11:58 Blood - Venous Blood Culture - Preliminary No growth after 24 hours. 11/08/22 11:58 Blood - Venous Blood Culture - Preliminary No growth after 24 hours. Procedures Date of Service Date of Service: 11/10/22 Assessment & Plan Assessment and plan (1) Miky castro finger: Status: Acute (2) Type 2 diabetes mellitus with diabetic neuropathy: Status: Acute (3) Proteinuria: Status: Acute Plan 51 yr old woman with proteinuria in a setting of DM Most likely has diabetic kidney disease Non diabetic causes should be ruled out as well- although seems less likely Renal function is stable Nephrotic range proteinuria -about 3 gm Suggest SPEP Anti-PLA2R C3/C4 Hepatitis panel Optimize blood sugar Optimize BP Maximize ACEinhibition - Increase LISINOPRIL as tolerated CAN INCREASE to 10 mg BID since BP is still elevated Optimize diuretics - Lasix 20mg PO BID + Spironolactone Low salt diet Watch POTASSIUM Continue to avoid nephrotoxins Time Spent With Patient Time: Total time managing care of this patient today ____ minutes. Progress Note: Quality Stroke Does the patient have a stroke diagnosis?: No
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
[2022-11-10 11:11] LABS: Glucose, Whole Blood 114 mg/dL (60-115)
--- NOTE | 2022-11-10 13:20 | HO.PM.IMPN ---
Subjective Subjective Date of Service: 11/10/22 Interval History: Finger cellulitis, uncontrolled diabetes, proteinuria,uncontrolled htn Review of Systems Cellulitis and seems similar to the yesterday unchanged.? No fever Physical Exam Vital Signs: Vital Signs: Last Vital Signs Temp 98.2 F 11/10/22 07:37 Pulse 83 11/10/22 07:37 Resp 18 11/10/22 07:37 BP 161/78 H 11/10/22 07:37 Pulse Ox 96 11/10/22 07:37 O2 Del Method Room Air 11/10/22 07:37 BMI result Body Mass Index 35.2 Appearance: Alert.? Oriented X3.? not in distress.? cvs: rrr, [id number] . res: clear to auscultation ,no rhonchii or wheezing abd: no rebound or guarding ,nt, bs present. ext pulses present , no cyanosis, right sided 4th finger -area similarto yesterday -please see picture h&p . neuro: axo3 , nonfocal. Objective Data Active Medications Acetaminophen (Acetaminophen 325 Mg Tablet) 650 mg PO Q6H PRN PRN Reason: Pain, Mild (Pain Scale 1-3) Albuterol Sulfate (Albuterol Sulfate (0.083%) 2.5 Mg/3 Ml Vial.Neb) 2.5 mg INHALE Q4H PRN PRN Reason: Shortness Of Breath Albuterol Sulfate (Albuterol Sulfate 90 Mcg 8 Gm Inhaler) 2 puff INHALE Q6H PRN PRN Reason: Shortness Of Breath Clonazepam (Clonazepam 1 Mg Tablet) 1 mg PO TID [facility] Last Admin: 11/10/22 08:30 Dose: 1 mg Documented By: RADHA Clonidine HCl (Clonidine Hcl 0.1 Mg Tablet) 0.1 mg PO BEDTIME [facility]; Protocol Last Admin: 11/09/22 20:21 Dose: Not Given Documented By: CITLALLI Non-Admin Reason: Patient Refused Duloxetine HCl (Duloxetine Hcl 30 Mg Capsule.) 30 mg PO DAILY [facility] Last Admin: 11/10/22 08:30 Dose: 30 mg Documented By: RADHA Fluticasone/Vilanterol (Fluticasone/Vilanterol 200/25 Blst.W.Dev) 1 puff INHALE RDAILY [facility] Last Admin: 11/10/22 07:57 Dose: Not Given Documented By: RADHA Non-Admin Reason: Med Not Available Furosemide (Furosemide 20 Mg Tablet) 20 mg PO BID@0900,1800 [facility]; Protocol Last Admin: 11/10/22 08:30 Dose: 20 mg Documented By: RADHA Gabapentin (Gabapentin 600 Mg Tablet) 600 mg PO BID PRN PRN Reason: Pain, Moderate (Pain Scale 4-6 Last Admin: 11/09/22 20:20 Dose: 600 mg Documented By: CITLALLI Glucose (Glucose Gel 15 Gm Gel..Gram.) 15 gm PO Q15M PRN; Protocol PRN Reason: per Hypoglycemia Standing Ord. Piperacillin Sod/Tazobactam (Sod 3.375 gm/ Sodium Chloride) 50 mls @ 100 mls/hr IV Q6H [facility] Last Admin: 11/10/22 12:05 Dose: 100 mls/hr Documented By: RADHA Doxycycline Hyclate 100 mg/ (Sodium Chloride) 250 mls @ 166.67 mls/hr IV Q12H [facility] Last Infusion: 11/10/22 02:13 Dose: 0 mls/hr Documented By: CITLALLI Dextrose (D10) 250 mls @ 750 mls/hr IV Q15M PRN; Protocol PRN Reason: per Hypoglycemia Standing Ord. Insulin Glargine (Insulin Glargine,Hum.Rec.Anlog 100 Unit/Ml 10 Ml Vial) 25 unit SUBCUT BEDTIME [facility] Last Admin: 11/09/22 20:08 Dose: 25 unit Documented By: CITLALLI Insulin Glargine (Insulin Glargine,Hum.Rec.Anlog 100 Unit/Ml 10 Ml Vial) 25 unit SUBCUT DAILY [facility] Last Admin: 11/10/22 08:29 Dose: 25 unit Documented By: RADHA Insulin Human Lispro (Insulin Lispro 100 Unit/Ml 3 Ml Vial) 0 unit SUBCUT QIDACHS [facility]; Protocol Last Admin: 11/10/22 11:44 Dose: Not Given Documented By: RADHA Non-Admin Reason: No Insulin Coverage Lidocaine (Lidocaine 4 % Patch Adh..Patch) 1 patch TRANSDERMA DAILY [facility]; Protocol Last Admin: 11/10/22 08:29 Dose: 1 patch Documented By: RADHA Lisinopril (Lisinopril 10 Mg Tablet) 10 mg PO DAILY [facility]; Protocol Last Admin: 11/10/22 08:30 Dose: 10 mg Documented By: RADHA Magnesium Oxide (Magnesium Oxide 400 Mg Tablet) 400 mg PO BID [facility] Last Admin: 11/10/22 08:37 Dose: 400 mg Documented By: RADHA Methadone HCl (Methadone Hcl 20 Mg/2 Ml Oral.Conc) 35 mg PO DAILY [facility] Last Admin: 11/10/22 08:30 Dose: 35 mg Documented By: RADHA Morphine Sulfate (Morphine Sulfate 2 Mg/Ml Cartridge) 1 mg IVPUSH Q4H PRN; Protocol PRN Reason: Pain, Mild (Pain Scale 1-3) Last Admin: 11/10/22 08:56 Dose: 1 mg Documented By: RADHA Nicotine Polacrilex (Nicotine Polacrilex 2 Mg Gum) 2 mg BUCCAL Q2H PRN PRN Reason: withdrawal Omeprazole (Omeprazole 40 Mg Capsule.Dr) 40 mg PO DAILY@0630 [facility] Last Admin: 11/10/22 05:54 Dose: 40 mg Documented By: CITLALLI Ondansetron HCl (Ondansetron Hcl 4 Mg/2 Ml Vial) 4 mg IVPUSH Q8H PRN PRN Reason: Nausea and Vomiting Sodium Chloride (0.9 % Sodium Chloride Flush 3 Ml Syringe) 3 ml IVFLUSH QSHIFT [facility] Last Admin: 11/10/22 08:29 Dose: 3 ml Documented By: RADHA Spironolactone (Spironolactone 25 Mg Tablet) 25 mg PO DAILY [facility]; Protocol Last Admin: 11/10/22 08:30 Dose: 25 mg Documented By: RADHA Triamcinolone Acetonide (Triamcinolone Acet 0.025 % Cream 15 Gm Tube) 1 appl TOPICAL BID [facility]; Protocol Last Admin: 11/10/22 08:37 Dose: 1 appl Documented By: RADHA Zolpidem Tartrate (Zolpidem Tartrate 5 Mg Tablet) 5 mg PO BEDTIME PRN PRN Reason: Sleep Last Admin: 11/10/22 00:10 Dose: 5 mg Documented By: CITLALLI Labs 11/09/22 06:03 11/10/22 06:00 Labs: Laboratory Results - last 24 hr 11/09/22 11/09/22 11/09/22 16:37 19:25 19:25 Anion Gap Estim Creat Clear Calc Estimated GFR POC Glucose 232 H Random Glucose Estimat Average Glucose Hemoglobin A1c % Calcium Ur 24 Hour Volume 1100 Urine Creatinine 99.64 Ur Creatinine mg/dL 101.10 Ur Creatinine 24 Hour 1.1 Ur Total Protein 24 Hr 3080 H Urine Opiates Screen Urine Fentanyl Screen Ur Barbiturates Screen Ur Phencyclidine Scrn Ur Amphetamines Screen U Benzodiazepines Scrn Urine Cocaine Screen U Marijuana (THC) Screen 11/09/22 11/09/22 11/10/22 19:25 19:52 06:00 Anion Gap 12 Estim Creat Clear Calc 97.0 Estimated GFR > 60 POC Glucose 225 H Random Glucose 161 H Estimat Average Glucose Hemoglobin A1c % Calcium 8.3 L Ur 24 Hour Volume Urine Creatinine Ur Creatinine mg/dL Ur Creatinine 24 Hour Ur Total Protein 24 Hr Urine Opiates Screen POSITIVE H Urine Fentanyl Screen POSITIVE H Ur Barbiturates Screen Not Detected Ur Phencyclidine Scrn Not Detected Ur Amphetamines Screen Not Detected U Benzodiazepines Scrn POSITIVE H Urine Cocaine Screen Not Detected U Marijuana (THC) Screen Not Detected 11/10/22 11/10/22 11/10/22 06:00 07:34 11:08 Anion Gap Estim Creat Clear Calc Estimated GFR POC Glucose 149 H 114 Random Glucose Estimat Average Glucose 249 Hemoglobin A1c % 10.3 Calcium Ur 24 Hour Volume Urine Creatinine Ur Creatinine mg/dL Ur Creatinine 24 Hour Ur Total Protein 24 Hr Urine Opiates Screen Urine Fentanyl Screen Ur Barbiturates Screen Ur Phencyclidine Scrn Ur Amphetamines Screen U Benzodiazepines Scrn Urine Cocaine Screen U Marijuana (THC) Screen Microbiology Microbiology Results: Microbiology 11/08/22 11:58 Blood Culture - Preliminary Blood - Venous No growth after 24 hours. 11/08/22 11:58 Blood Culture - Preliminary Blood - Venous No growth after 24 hours. Assessment and Plan (1) Felon of finger: Status: Acute (2) Proteinuria: Status: Acute Plan 51-year-old woman admitted with cellulitis of right and 4th digit requiring I&D. Right hand 4th digit cellulitis/felon finger Finger cellulitis looks seems, blood culture pending, says continue Zosyn and doxycycline, may require I&D,Pain management Elevate extremity to help decrease swelling and pain keep clean and dry orthopedic surgery consultation-possible I&D. Proteinurea with noted lower extremity edema-multifactorial ( dm ,htn) check lipid panel,24 hour urine On Lasix and spironolactone at home ,lisinopril added CHRIS stockings for LE edema nephrology consult-added renal studies. elevated blood pressure readings no noted hx of HTN lisinopril 5 mg added,given amlodipine 2.5 mg will adjust lisinopril for morning follow BP closely Hypomagnesemia Repleted ,improving, continue po replacements. Diabetes mellitus type 2: fs seems improving Sliding scale, ADA diet, long-acting insulin Chronic back pain-Lidocaine patches IV drug use:Reports recent relapse using heroin drug screen: positive for fentanyl Addiction medicine consultation On methadone, clinic verification required. Asthma No exacerbation Continue home inhalers Mental health Continue home medications Smoker Nicotine replacement Obesity.? BMI 31.9 Weight management DVT prophylaxis with heparin inpatient need: right hand digit cellulitis requiring IV antibiotics and likely surgical intervention for finger, workup for proteinuria and edema. Time Spent With Patient Time: Total time managing care of this patient today ____ minutes. Quality Stroke Does the patient have a stroke diagnosis?: No VTE Prior VTE?: No VTE Risk Level:: Medical - moderate - high VTE Device Contraindication: Treatment Not Indicated VTE Drug Contraindication: N/A - Med Ordered
[2022-11-10 13:52] LABS: Glucose, Whole Blood 86 mg/dL (60-115)
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
[2022-11-10 16:45] LABS: Glucose, Whole Blood 73 mg/dL (60-115)
--- NOTE | 2022-11-10 16:54 | MHC.SHP ---
Pre-Procedural Eval Section A Date of Service: 11/10/22 The patient is an INPATIENT: Yes The History & Physical has been completed within 30 days and I have reviewed it.: Yes Section B Chief Complaint: cellulitis Allergies: Allergies Allergy/AdvReac Type Severity Reaction Status Date / Time No Known Allergies Allergy Verified 11/10/22 13:48 Exam Exam Comment: patient seen in preop hold by me. She has a right ring finger felon, worrisome for some possible skin necrosis in the pad of the finger. She is also tender over the flexor tendon sheath down to the PIP joint. Less tender over the A1 joshua. Plan I have reviewed the history and physical and performed a pertinent physical examination on my patient. No changes have occurred unless specified. Assessment and plan: 1. Right ring finger felon and flexor tenosynovitis. I educated the patient about this condition I am recommending operative I and D The risks and benefits of operative treatment were discussed with the patient and the patient wishes to proceed with surgery. These risks include, but are not limited to risk of damage to blood vessels, nerves, tendons, infection, recurrence, incomplete relief of preoperative symptoms, persistent pain, possible need for further surgery and the risks associated with regional blocks and anesthesia. The plan is to take the patient to the operating room today for the following procedures: 1. I&D of right ring finger felon and flexor tendon sheath. 2. [ ] All of the preoperative paperwork including the consent was filled out today. All the patient's questions were answered. Time Spent With Patient Time: Total time managing care of this patient today ____ minutes.
--- NOTE | 2022-11-10 16:57 | W.PM.OPN ---
Operative Note Operative Note Date of Service: 11/10/22 Narrative: Operative Note Narrative: Preop diagnosis: 1. Right ring finger felon 2. Right ring finger flexor tenosynovitis Postop diagnosis: Same Procedure: 1. I&D right ring finger felon 2. I&D right ring finger flexor tendon sheath Surgeon: Edna Melendez MD Anesthesia: General Anesthesia Findings: creamy yellow purulence found within the pad of the right ring finger. There was also purulence about the flexor tendon sheath at the middle phalanx level down to the PIP joint. No gross purulence found within the flexor tendon sheath at the A1 joshua level Implants: none Tourniquet time: 16 minutes EBL: 5.0 ml Specimen: culture right ring finger felon Drains: None Complications: None Disposition: Brought to the recovery room in stable condition Plan: admit back to the floor for IV antibiotics remove drain and change dressing tomorrow. Begin daily dressing changes and active range of motion exercises. Check cultures and adjust antibiotics appropriately Indications: The patient is a 51 year old woman with diabetes with a right ring finger felon and evidence of flexor tenosynovitis . The risks and benefits of operative treatment, including but not limited to risk of damage to blood vessels, nerves, tendons, infection, recurrence, persistent pain or numbness, incomplete resolution of preoperative symptoms, or need for further surgery were discussed with the patient and they wished to proceed with surgery. Procedure: Once consent was obtained patient was brought back to the operating suite and placed in the operating table in a supine position. . Perioperative antibiotics and anesthesia was administered by the anesthesia team. A tourniquet was applied to the proximal aspect of the right upper extremity and the limb was prepped and draped in a standard surgical fashion. The limb was elevated exsanguinated with Esmarch bandage and the tourniquet inflated to 250 mm of mercury for a total tourniquet time of 16 minutes. I 1st made an oblique incision over the apex of the abscess in the pad of the right ring finger. I then dissected down into the pad of the finger and found a significant pocket of creamy yellow purulence. Cultures were taken. I then used a clean blade and made an oblique incision over the A1 joshua of the right ring finger. The incision was made through the skin the subcutaneous tissues with a clean 15. Blade. I then dissected down to the level of the A1 joshua. I made a longitudinal incision in the A1 joshua using tenotomy scissors under direct visualization. No gross purulence was found within the flexor tendon sheath at this level and the flexor tendons were in good con dition. I then made an oblique incision over the right ring finger middle phalanx over the flexor tendon sheath. The incision was made through the skin the subcutaneous tissues. I then dissected down to the flexor tendon sheath. There was already purulence found about the flexor tendon sheath. I did make a small incision proximal to the A4 joshua using a 15. Blade. I then copiously irrigated the tissues over the volar aspect of the middle phalanx using copious amounts of normal saline. I also irrigated the pad of the finger with normal saline. Once satisfied with this I then passed an Angiocath into the flexor tendon sheath at the level of the A1 joshua directed distally. This then allowed me to flush out the flexor tendon sheath in a proximal to distal direction. This was copiously irrigated with normal saline to flush out the flexor tendon sheath. I again washed out the soft tissues of the middle phalanx and in the pad with normal saline. At this point the tourniquet was deflated and hemostasis obtained with a brief period of local pressure . I loosely closed the incisions over the A1 joshua and the A3/A4 joshua with some 5 0 Prolene suture. They were loosely closed to allow for drainage. No closure was made distally. I then debrided the nonviable tissue off of the pad of the finger. She may have an area of skin necrosis in the pad of the finger from the purulence under pressure. We will have to see how well this heals. A piece of iodoform gauze was placed into this wound in the pad of the finger to facilitate drainage. A digital block was performed proximally with some 0.5% plain ropivacaine. A sterile dressing was then placed. The patient appears to have tolerated the procedure well and with no complications. All digits were well vascularized conclusion of the case.
[2022-11-10 19:35] LABS: Glucose, Whole Blood 218 mg/dL (60-115)
[2022-11-10] MEDS: cloNIDine HCL 0.1 MG TABLET PO (19:38)
[2022-11-10] MEDS: Insulin Lispro 100 UNIT/ML 3 ML VIAL SUBCUT (20:34)
[2022-11-11] MEDS: Piperacillin Sodium/Tazobactam 3.375 GM in 0.9 % Sodium Chloride 50 ML IV ×3 (00:25→11:33)
[2022-11-11] MEDS: Doxycycline Hyclate 100 MG in 0.9 % Sodium Chloride 250 ML 166.67 MG IV ×2 (00:48→12:31)
[2022-11-11] MEDS: Morphine Sulfate 2 MG/ML CARTRIDGE 1 MG IVPUSH ×5 (01:09→21:21)
[2022-11-11 03:40] VITALS: BP 162/75; PULSE 84; RESP 18; TEMP 36.1; O2SAT 93
[2022-11-11 04:38] LABS: HBS Num1 0.96 mIU/mL (0-7.99); HBc Num1 4.88 S/CO (0.00-0.79); HBsAGNum1 0.38 S/CO (0.00-0.99); Hepatitis A Antibody IgM 0.54 Index (0-0.79); Hepatitis B Surface Antigen Negative (Negative); ~HepC Num1 12.12 S/CO (0.00-0.79); ~Hepatitis A Antibody IgM Nonreactive (Nonreactive); ~Hepatitis B Surface Antibody NONREACTIVE (Nonreactive); ~Hepatitis C Antibody Reactive (Nonreactive)
[2022-11-11] MEDS: Omeprazole 40 MG CAPSULE.DR PO (05:26)
[2022-11-11 06:13] LABS: HBc Num2 4.78 S/CO; HBc Num3 4.93 S/CO; Hepatitis B Core Antibody Reactive (Nonreactive)
[2022-11-11] MEDS: Triamcinolone Acet 0.025 % Cream 15 GM TUBE 1 APPL TOPICAL ×2 (07:12→20:57)
[2022-11-11] MEDS: 0.9 % Sodium Chloride Flush 3 ML SYRINGE IVFLUSH (07:13)
[2022-11-11] MEDS: methADONE HCl 20 MG/2 ML ORAL.CONC 35 MG PO (07:19)
[2022-11-11] MEDS: Magnesium Oxide 400 MG TABLET PO ×2 (07:19→20:55)
[2022-11-11] MEDS: Insulin Glargine,Hum.rec.anlog 100 UNIT/ML 10 ML VIAL 25 UNIT SUBCUT ×2 (07:19→20:55)
[2022-11-11] MEDS: Spironolactone 25 MG TABLET PO (07:19)
[2022-11-11] MEDS: oxyCODONE HCl Immed Release 5 MG TABLET PO (07:19)
[2022-11-11] MEDS: DULoxetine HCl 30 MG CAPSULE.DR PO (07:19)
[2022-11-11] MEDS: lisinopriL 10 MG TABLET PO (07:20)
[2022-11-11] MEDS: Furosemide 20 MG TABLET PO ×2 (07:20→17:06)
[2022-11-11] MEDS: clonazePAM 1 MG TABLET PO ×3 (07:20→20:55)
[2022-11-11] MEDS: Lidocaine 4 % Patch ADH..PATCH 1 PATCH TRANSDERMA (07:20)
[2022-11-11 07:26] LABS: Glucose, Whole Blood 172 mg/dL (60-115)
[2022-11-11 07:46] VITALS: BP 184/91; PULSE 83; RESP 18; TEMP 36.9; O2SAT 96
--- NOTE | 2022-11-11 07:54 | PM.PNORT ---
Subjective Subjective Date of Service: 11/11/22 Interval history: POD1 s/p I&D right ring finger and ring finger tendon sheath. Patient is resting in bed. Reports pain and throbbing. No overnight events. No additional complaints. Physical Exam Vital Signs: Vital Signs: Last Vital Signs Temp 98.4 F 11/11/22 07:46 Pulse 83 11/11/22 07:46 Resp 18 11/11/22 07:46 BP 184/91 H 11/11/22 07:46 Pulse Ox 96 11/11/22 07:46 O2 Del Method Room Air 11/11/22 07:46 BMI result Body Mass Index 35.2 Const: General: cooperative, healthy appearing and no acute distress Resp: Effort & Inspection: normal respiratory effort and able to speak in complete sentences Cardio: Rate: regular rate Peripheral pulses: Peripheral pulses 2+ throughout GI: Palpation (GI): Soft to palpation Skin: Lesions: no lesions Rashes: no rashes Extrem: Other: Right ring finger incision sites are c./d/i. Sutures intact. No active drainage. Able to slightly flex and extend. Capillary refill is brisk. Procedures Date of Service Date of Service: 11/11/22 Progress Note: A&P Assessment and plan (1) Raynaud's phenomenon without gangrene: Status: Acute (2) Severe obesity (BMI 35.0-39.9) with comorbidity: Status: Acute (3) Chronic hepatitis C: Status: Acute (4) Type 2 diabetes mellitus with diabetic neuropathy: Status: Acute (5) Felon of finger: Status: Acute Assessment and Plan: Continue IV abx Pending cultures Daily dressing changes - Nursing communication order in place -Xeroform -Gauze -Coban or KASSI Pain management (6) Methadone maintenance therapy patient: Status: Acute (7) Weakness: Status: Acute Time Spent With Patient Time: Total time managing care of this patient today ____ minutes. Quality Stroke Does the patient have a stroke diagnosis?: No VTE Prior VTE?: No VTE Risk Level:: Medical - moderate - high VTE Device Contraindication: Treatment Not Indicated VTE Drug Contraindication: N/A - Med Ordered
--- NOTE | 2022-11-11 08:11 | HO.POSTANES ---
Post Anesthesia Evaluation Post Anesthesia Evaluation Vital Signs: Vital Signs Temp Pulse Resp BP Pulse Ox O2 Del Method 11/11/22 07:46 98.4 F 83 18 184/91 H 96 Room Air 11/11/22 03:40 97 F 84 18 162/75 H 93 Room Air 11/10/22 22:12 175/76 H Anesthesia: General LMA Mental Status: Awake Pain Control: Satisfactory Nausea/Vomiting: None Hydration: Adequate Anesthesia-Related Issues: No Anes. Related Issues
[2022-11-11] MEDS: Insulin Lispro 100 UNIT/ML 3 ML VIAL SUBCUT ×2 (08:18→20:55)
[2022-11-11] MEDS: amLODIPine Besylate 2.5 MG TABLET PO ×2 (08:55→14:12)
[2022-11-11 10:21] LABS: Anion Gap 11 (12-20); Blood Urea Nitrogen 9 mg/dL (9-16); Calcium 8.8 mg/dL (8.4-10.2); Carbon Dioxide 31 mmol/L (22-29); Chloride 102 mmol/L (96-108); Creatinine Clr Calc Pharmacy 102.4; Estimated Glomerular Filt Rate > 60; Glucose Random 110 mg/dL (60-115); Potassium 4.3 mmol/L (3.3-5.1); Sodium 140 mmol/L (135-145)
[2022-11-11] MEDS: Gabapentin 600 MG TABLET PO (10:26)
[2022-11-11 11:32] LABS: Glucose, Whole Blood 82 mg/dL (60-115)
--- NOTE | 2022-11-11 13:13 | P.PNIM_ITS ---
Subjective Subjective Date of Service: 11/11/22 Interval History: Finger cellulitis, uncontrolled diabetes, proteinuria,uncontrolled htn Review of Systems Cellulitis/??felon-s/p I&D. No fever Physical Exam Vital Signs: Vital Signs: Last Vital Signs Temp 98.4 F 11/11/22 07:46 Pulse 83 11/11/22 07:46 Resp 18 11/11/22 07:46 BP 184/91 H 11/11/22 07:46 Pulse Ox 96 11/11/22 07:46 O2 Del Method Room Air 11/11/22 07:46 BMI result Body Mass Index 35.2 Appearance: Alert.? Oriented X3.? not in distress.? cvs: rrr, [id number] . res: clear to auscultation ,no rhonchii or wheezing abd: no rebound or guarding ,nt, bs present. ext pulses present , no cyanosis, right sided 4th finger -S/P I&D ,wrapped -no drainage/erythema around. neuro: axo3 , nonfocal. Objective Data Active Medications Acetaminophen (Acetaminophen 325 Mg Tablet) 650 mg PO Q6H PRN PRN Reason: Pain, Mild (Pain Scale 1-3) Albuterol Sulfate (Albuterol Sulfate (0.083%) 2.5 Mg/3 Ml Vial.Neb) 2.5 mg INHALE Q4H PRN PRN Reason: Shortness Of Breath Albuterol Sulfate (Albuterol Sulfate 90 Mcg 8 Gm Inhaler) 2 puff INHALE Q6H PRN PRN Reason: Shortness Of Breath Amlodipine Besylate (Amlodipine Besylate 2.5 Mg Tablet) 2.5 mg PO DAILY [facility]; Protocol Last Admin: 11/11/22 08:55 Dose: 2.5 mg Documented By: RADHA Clonazepam (Clonazepam 1 Mg Tablet) 1 mg PO TID [facility] Last Admin: 11/11/22 07:20 Dose: 1 mg Documented By: BRANDO Clonidine HCl (Clonidine Hcl 0.1 Mg Tablet) 0.1 mg PO BEDTIME [facility]; Protocol Last Admin: 11/10/22 19:38 Dose: 0.1 mg Documented By: KENNY Comments: pt bp is high give meds now Duloxetine HCl (Duloxetine Hcl 30 Mg Capsule.) 30 mg PO DAILY [facility] Last Admin: 11/11/22 07:19 Dose: 30 mg Documented By: BRANDO Fentanyl (Fentanyl Citrate/Pf 100 Mcg/2 Ml Vial) 25 mcg IVPUSH Q5M PRN; Protocol PRN Reason: Pain, Moderate (Pain Scale 4-6 Fluticasone/Vilanterol (Fluticasone/Vilanterol 200/25 Blst.W.Dev) 1 puff INHALE RDAILY [facility] Last Admin: 11/11/22 08:13 Dose: Not Given Documented By: RIDGE Non-Admin Reason: pharmacy called x2 Furosemide (Furosemide 20 Mg Tablet) 20 mg PO BID@0900,1800 [facility]; Protocol Last Admin: 11/11/22 07:20 Dose: 20 mg Documented By: BRANDO Gabapentin (Gabapentin 600 Mg Tablet) 600 mg PO BID PRN PRN Reason: Pain, Moderate (Pain Scale 4-6 Last Admin: 11/11/22 10:26 Dose: 600 mg Documented By: RADHA Glucose (Glucose Gel 15 Gm Gel..Gram.) 15 gm PO Q15M PRN; Protocol PRN Reason: per Hypoglycemia Standing Ord. Piperacillin Sod/Tazobactam (Sod 3.375 gm/ Sodium Chloride) 50 mls @ 100 mls/hr IV Q6H [facility] Last Infusion: 11/11/22 12:29 Dose: 0 mls/hr Documented By: RADHA Doxycycline Hyclate 100 mg/ (Sodium Chloride) 250 mls @ 166.67 mls/hr IV Q12H [facility] Last Admin: 11/11/22 12:31 Dose: 166.67 mls/hr Documented By: RADHA Dextrose (D10) 250 mls @ 750 mls/hr IV Q15M PRN; Protocol PRN Reason: per Hypoglycemia Standing Ord. Insulin Glargine (Insulin Glargine,Hum.Rec.Anlog 100 Unit/Ml 10 Ml Vial) 25 unit SUBCUT BEDTIME [facility] Last Admin: 11/10/22 20:34 Dose: 25 unit Documented By: KENNY Insulin Glargine (Insulin Glargine,Hum.Rec.Anlog 100 Unit/Ml 10 Ml Vial) 25 unit SUBCUT DAILY [facility] Last Admin: 11/11/22 07:19 Dose: 25 unit Documented By: BRANDO Insulin Human Lispro (Insulin Lispro 100 Unit/Ml 3 Ml Vial) 0 unit SUBCUT QIDACHS [facility]; Protocol Last Admin: 11/11/22 11:34 Dose: Not Given Documented By: RADHA Non-Admin Reason: No Insulin Coverage Lidocaine (Lidocaine 4 % Patch Adh..Patch) 1 patch TRANSDERMA DAILY [facility]; Protocol Last Admin: 11/11/22 07:20 Dose: 1 patch Documented By: BRANDO Lisinopril (Lisinopril 10 Mg Tablet) 10 mg PO DAILY [facility]; Protocol Last Admin: 11/11/22 07:20 Dose: 10 mg Documented By: BRANDO Magnesium Oxide (Magnesium Oxide 400 Mg Tablet) 400 mg PO BID [facility] Last Admin: 11/11/22 07:19 Dose: 400 mg Documented By: BRANDO Methadone HCl (Methadone Hcl 20 Mg/2 Ml Oral.Conc) 35 mg PO DAILY [facility] Last Admin: 11/11/22 07:19 Dose: 35 mg Documented By: BRNADO Morphine Sulfate (Morphine Sulfate 2 Mg/Ml Cartridge) 1 mg IVPUSH Q4H PRN; Protocol PRN Reason: Pain, Mild (Pain Scale 1-3) Last Admin: 11/11/22 10:19 Dose: 1 mg Documented By: RADHA Nicotine Polacrilex (Nicotine Polacrilex 2 Mg Gum) 2 mg BUCCAL Q2H PRN PRN Reason: withdrawal Omeprazole (Omeprazole 40 Mg Capsule.Dr) 40 mg PO DAILY@0630 [facility] Last Admin: 11/11/22 05:26 Dose: 40 mg Documented By: KENNY Ondansetron HCl (Ondansetron Hcl 4 Mg/2 Ml Vial) 4 mg IVPUSH Q8H PRN PRN Reason: Nausea and Vomiting Ondansetron HCl (Ondansetron Hcl 4 Mg/2 Ml Vial) 4 mg IVPUSH ONCE PRN PRN Reason: Nausea and Vomiting Sodium Chloride (0.9 % Sodium Chloride Flush 3 Ml Syringe) [address] [facility] Last Admin: 11/11/22 07:13 Dose: 3 ml Documented By: BRANDO Spironolactone (Spironolactone 25 Mg Tablet) 25 mg PO DAILY [facility]; Protocol Last Admin: 11/11/22 07:19 Dose: 25 mg Documented By: BRANDO Triamcinolone Acetonide (Triamcinolone Acet 0.025 % Cream 15 Gm Tube) 1 appl TOPICAL BID [facility]; Protocol Last Admin: 11/11/22 07:12 Dose: 1 appl Documented By: BRANDO Zolpidem Tartrate (Zolpidem Tartrate 5 Mg Tablet) 5 mg PO BEDTIME PRN PRN Reason: Sleep Last Admin: 11/10/22 00:10 Dose: 5 mg Documented By: CITLALLI Labs 11/09/22 06:03 11/11/22 09:59 Labs: Laboratory Results - last 24 hr 11/10/22 11/10/22 11/10/22 06:00 13:47 16:40 Anion Gap Estim Creat Clear Calc Estimated GFR POC Glucose 86 73 Random Glucose Calcium Hepatitis A IgM Ab Nonreactive Hep Bs Antigen Negative Hep Bs Antibody NONREACTIVE Hep B Core Total Ab Reactive Hepatitis C Ab (EIA) Reactive H 11/10/22 11/11/22 11/11/22 19:29 07:19 09:59 Anion Gap 11 L Estim Creat Clear Calc 102.4 Estimated GFR > 60 POC Glucose 218 H 172 H Random Glucose 110 Calcium 8.8 D Hepatitis A IgM Ab Hep Bs Antigen Hep Bs Antibody Hep B Core Total Ab Hepatitis C Ab (EIA) 11/11/22 11:27 Anion Gap Estim Creat Clear Calc Estimated GFR POC Glucose 82 Random Glucose Calcium Hepatitis A IgM Ab Hep Bs Antigen Hep Bs Antibody Hep B Core Total Ab Hepatitis C Ab (EIA) Microbiology Microbiology Results: Microbiology 11/10/22 Unknown Gram Stain - Final Finger Right Ring Routine Culture - Preliminary Staphylococcus aureus 11/08/22 11:58 Blood Culture - Preliminary Blood - Venous No growth after 48 hours. 11/08/22 11:58 Blood Culture - Preliminary Blood - Venous No growth after 48 hours. Assessment and Plan (1) Felon of finger: Status: Acute (2) Proteinuria: Status: Acute Plan 51-year-old woman admitted with cellulitis of right and 4th digit requiring I&D. Right hand 4th digit cellulitis/felon finger Finger cellulitis looks seems, blood culture pending, says continue Zosyn and doxycycline, s/p I&D,Pain management Elevate extremity to help decrease swelling and pain keep clean and dry orthopedic surgery consultation-possible I&D. Proteinurea with noted lower extremity edema-multifactorial ( dm ,htn) check lipid panel,24 hour urine On Lasix and spironolactone at home ,lisinopril added CHRIS stockings for LE edema nephrology consult-added renal studies. elevated blood pressure readings no noted hx of HTN lisinopril 5 mg added,adjusted amlodipine 5 mg moniter BP closely Hypomagnesemia Repleted ,improving, continue po replacements. Diabetes mellitus type 2: fs seems improving Sliding scale, ADA diet, long-acting insulin Chronic back pain-Lidocaine patches IV drug use:Reports recent relapse using heroin drug screen: positive for fentanyl Addiction medicine consultation On methadone, clinic verification required. Asthma No exacerbation Continue home inhalers Mental health Continue home medications Smoker Nicotine replacement Obesity.? BMI 31.9 Weight management DVT prophylaxis with heparin inpatient need: right hand digit cellulitis requiring IV antibiotics and likely surgical intervention for finger, workup for proteinuria and edema. Time Spent With Patient Time: Total time managing care of this patient today ____ minutes. Quality Stroke Does the patient have a stroke diagnosis?: No VTE Prior VTE?: No VTE Risk Level:: Medical - moderate - high VTE Device Contraindication: Treatment Not Indicated VTE Drug Contraindication: N/A - Med Ordered
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
[2022-11-11 16:00] VITALS: BP 168/83; PULSE 80; RESP 18; TEMP 36.2; O2SAT 97
--- NOTE | 2022-11-11 16:17 | MHC.CM.PN ---
PER PHYSICIAN ROUNDS, NO PLAN FOR DC TODAY
[2022-11-11 16:40] LABS: Glucose, Whole Blood 113 mg/dL (60-115)
[2022-11-11 19:10] VITALS: BP 153/79; PULSE 76; RESP 18; TEMP 36.5; O2SAT 92
[2022-11-11 20:42] LABS: Glucose, Whole Blood 242 mg/dL (60-115)
[2022-11-11] MEDS: cloNIDine HCL 0.1 MG TABLET PO (20:54)
[2022-11-11] MEDS: Doxycycline Monohydrate 100 MG CAPSULE PO (20:55)
[2022-11-11] MEDS: Zolpidem Tartrate 5 MG TABLET PO (21:22)
[2022-11-12 03:26] VITALS: BP 165/89; PULSE 73; RESP 18; TEMP 36.7; O2SAT 93
[2022-11-12] MEDS: Morphine Sulfate 2 MG/ML CARTRIDGE 1 MG IVPUSH ×2 (03:40→08:03)
[2022-11-12 07:39] LABS: Glucose, Whole Blood 108 mg/dL (60-115)
[2022-11-12 07:48] VITALS: BP 188/98; PULSE 76; RESP 16; TEMP 36.4; O2SAT 94
[2022-11-12] MEDS: DULoxetine HCl 30 MG CAPSULE.DR PO (07:49)
[2022-11-12] MEDS: methADONE HCl 20 MG/2 ML ORAL.CONC 35 MG PO (07:49)
[2022-11-12] MEDS: Insulin Glargine,Hum.rec.anlog 100 UNIT/ML 10 ML VIAL 25 UNIT SUBCUT (07:49)
[2022-11-12] MEDS: Lidocaine 4 % Patch ADH..PATCH 1 PATCH TRANSDERMA (07:50)
[2022-11-12] MEDS: clonazePAM 1 MG TABLET PO (07:50)
[2022-11-12] MEDS: amLODIPine Besylate 5 MG TABLET PO (07:50)
[2022-11-12] MEDS: Magnesium Oxide 400 MG TABLET PO (07:50)
[2022-11-12] MEDS: 0.9 % Sodium Chloride Flush 3 ML SYRINGE IVFLUSH (07:50)
[2022-11-12] MEDS: Furosemide 20 MG TABLET PO (07:50)
[2022-11-12] MEDS: Spironolactone 25 MG TABLET PO (07:50)
[2022-11-12] MEDS: lisinopriL 10 MG TABLET PO (07:50)
[2022-11-12] MEDS: Gabapentin 600 MG TABLET PO (08:03)
[2022-11-12] MEDS: Triamcinolone Acet 0.025 % Cream 15 GM TUBE 1 APPL TOPICAL (08:09)
[2022-11-12 09:01] VITALS: BP 140/100
[2022-11-12] MEDS: Doxycycline Monohydrate 100 MG CAPSULE PO (09:52)
--- NOTE | 2022-11-12 10:53 | PM.DS ---
DS: Providers Provider Date of Service: 11/12/22 Date of admission: 11/08/22 16:44 Date of discharge: 11/12/22 Primary care physician: Rigo Baptiste MD Consults: 11/08/22 16:44 Consult to Orthopedics Routine Consulting Provider: [facility] Reason for consultation: finger abscess Has provider been notified: No 11/08/22 16:50 Addiction Medicine Routine Consulting Provider: [facility]ing Reason for consultation: IVDA Has provider been notified: No 11/08/22 17:23 Consult to Nephrology Routine Consulting Provider: Earl Gómez Reason for consultation: proteinurea Has provider been notified: No 11/09/22 11:56 Consult to Infectious Diseases Routine Consulting Provider: [facility] Infectious Disease Reason for consultation: finger cellulitis/abcess ,skin rash on lower abd /impitigo? Has provider been notified: No DS: Diagnosis Discharge Diagnosis (1) Felon of finger: Status: Acute (2) Pedal edema: Status: Acute (3) Proteinuria: Status: Acute (4) Type 2 diabetes mellitus with diabetic neuropathy: Status: Acute DS: Summary Hospital Course Hospital Course: 51-year-old woman presenting to the ER with complaints of worsening throbbing pain and swelling to right hand 4th digit.? She reports that she thought there was an abscess and she try to open it up but the site got more swollen and painful.? She reports a history of IV drug use, heroin and reports that she relapsed recently but denies injecting into her hand or fingers.? She also reported lower extremity edema and frequent falls.? She denied fever, chills, nausea, vomiting, diarrhea, recent travel, sick contacts.? No fever leukocytosis noted in the ER.? Positive for opiates and fentanyl.? Elevated blood pressure readings.? She was given doxycycline, magnesium Toradol and Lasix.? All imaging studies including chest and hand x-ray, head CT and bilateral venous duplex lower extremity ultrasound negative for any acute abnormalities.? Be admitted for further management and treatment of acute cellulitis of right hand. Hospital course: Patient was admitted with right hand 4th digit cellulitis/felon: Started on IV antibiotics, blood cultures sent, hand x-ray seems fine: With the antibiotics and pain management patient seems to be improving also had I&D done by ortho, finger area seems to be improving-her blood cultures been negative and wound culture came to be MRSA sensitive to doxycycline. In addition patient was found to have a diabetes and hypertension : Patient lisinopril adjusted, added amlodipine, In addition patient has proteinuria and probably diabetic kidney disease: Workup including complement levels, serum electrophoresis pending, also has significant proteinuria. Adjusted Lasix to scheduled and also continue spironolactone. Currently patient was strongly advised to stay and get further workup and continue antibiotic management-patient categorically declined she understand the risk of leaving against medical advice worsening kidney function and infection including . Will send antibiotic to the pharmacy, pain medication and blood pressure as well as lasix. moniter renal function and electrolytes outpatient . abdominal skin changes:seen by infectious disease -appearance with positive fentanyl screen is suggestive of xylazine skin findings. Xylazine is a veterinary sedative used to extend fentanyl effects . incidental left groin lymph node enlargement on venous dupplex-? possible reactive to abdominal skin changes , patient is leaving AMA, Told to follow up outpatient. She was strongly advised to go to nearest emergency room to get attention for her medical issues above. Above management discussed with the patient in detail length at bedside, nurse present during discharge, patient alert oriented x3, still wants to leave AMA. She signed AMA paper. Time Spent with Patient Time attestation: Total time managing care of this patient today ____ minutes. Discharge coordination time: Greater than 30 minutes Quality: Safe Use of Opioids Does Pt have an Active Cancer Diagnosis on the Problem List?: No Quality: Stroke Does the patient have a stroke diagnosis?: No Physical Exam Vital Signs: Vital Signs: Last Vital Signs Temp 97.5 F 11/12/22 07:48 Pulse 76 11/12/22 07:48 Resp 16 11/12/22 07:48 BP 140/100 H 11/12/22 09:01 Pulse Ox 94 11/12/22 07:48 O2 Del Method Room Air 11/12/22 07:48 BMI result Body Mass Index 35.2 refused. DS: Data Data Completed and Pending Labs on day of discharge: Laboratory Results - last 24 hr 11/11/22 11/11/22 11/11/22 11:27 16:35 20:38 POC Glucose 82 113 242 H 11/12/22 07:35 POC Glucose 108 Preliminary micro results at discharge 11/08/22 11:58 Blood Culture - Preliminary Blood - Venous No growth after 48 hours. 11/08/22 11:58 Blood Culture - Preliminary Blood - Venous No growth after 48 hours. Imaging Chest x-ray: Radiologist's impression: ITS Impressions Chest X-Ray 11/08/22 10:30 IMPRESSION: Unremarkable chest exam. Unremarkable right hand exam. Unremarkable CT brain without contrast. Hand X-Ray 11/08/22 10:30 IMPRESSION: Unremarkable chest exam. Unremarkable right hand exam. Unremarkable CT brain without contrast. Head CT 11/08/22 10:37 IMPRESSION: Unremarkable chest exam. Unremarkable right hand exam. Unremarkable CT brain without contrast. Venous Duplex 11/08/22 14:34 IMPRESSION: 1. No DVT demonstrated in the bilateral lower extremity. 2. Within the left groin are prominent lymph nodes measuring 3.2 x 0.7 x 3.0 cm and 1.7 x 0.9 x 2.1 cm. Discharge Plan Discharge Patient Disposition: Left Against Medical Advice Discharge Diagnosis: Finger cellulitis/felon s/p i&d. diabetic kidney disease Referrals: Rigo Baptiste MD [Primary Care Provider] - 1 Week Wero Freeman PA-C [Physician Intermediate Designer] - 1 Week (follow up outpatient) Earl Gómez MD [Physician] - 1 Week (follow up outpatient) Discharge Medications: New amlodipine 5 mg Tablet 5 mg PO DAILY Qty: 30 0RF Protocol: Hold for SBP< HOLD for SBP < : 90 lisinopril 10 mg Tablet 10 mg PO DAILY Qty: 30 0RF Protocol: Hold for SBP< HOLD for SBP < : 90 morphine 15 mg tablet 15 mg PO TID PRN (Reason: pain) Qty: 8 0RF Rx Instructions: Partial Fill upon patient request. doxycycline monohydrate 100 mg Capsule 100 mg PO Q12H Qty: 28 0RF polyethylene glycol 3350 [Miralax] 17 gram/dose powder 17 g PO DAILY PRN (Reason: constipation) Qty: 119 0RF lidocaine [Lidocaine Pain Relief] 4 % Adhesive Patch,Medicated 1 patch transdermal DAILY Qty: 10 0RF Protocol: Apply to: Apply to: back docusate sodium [Colace] 100 mg capsule 100 mg PO DAILY PRN (Reason: constipation) Qty: 20 0RF Continued albuterol sulfate 2.5 mg /3 mL (0.083 %) solution for nebulization 2.5 mg inhalation Q4H PRN (Reason: Shortness Of Breath) ProAir RespiClick 90 mcg/actuation aerosol powdr breath activated 2 inh inhalation Q6H PRN (Reason: Shortness Of Breath) gabapentin 600 mg tablet 600 mg PO BID PRN (Reason: Pain) zolpidem 12.5 mg tablet,ext release multiphase 12.5 mg PO BEDTIME PRN (Reason: Sleep) duloxetine 30 mg capsule,delayed release(DR/EC) 30 mg PO DAILY omeprazole 40 mg capsule,delayed release(DR/EC) 40 mg PO DAILY triamcinolone acetonide 0.025 % cream 1 appl topical BID spironolactone 25 mg tablet 25 mg PO DAILY methadone 5 mg/5 mL solution 35 mg PO DAILY magnesium oxide 400 mg (241.3 mg magnesium) tablet 400 mg PO BID lidocaine 5 % adhesive patch,medicated 1 patch topical DAILY Rx Instructions: leave on most painful area for up to 12 hrs insulin lispro 100 unit/mL solution 5 - 25 unit subcut TID insulin glargine [Lantus Solostar U-100 Insulin] 100 unit/mL (3 mL) insulin pen 25 unit subcut DAILY fluticasone propion-salmeterol [Advair HFA] 230-21 mcg/actuation HFA aerosol inhaler 2 puff inhalation BID clonazepam 1 mg tablet 1 mg PO TID clonidine HCl 0.1 mg tablet 0.1 mg PO BEDTIME methocarbamol 750 mg tablet 750 mg PO QID PRN (Reason: Pain) insulin glargine [Lantus Solostar U-100 Insulin] 100 unit/mL (3 mL) insulin pen 25 unit subcut BEDTIME Changed furosemide 20 mg tablet 20 mg PO DAILY Qty: 30 0RF Discharge Orders: Discharge Order (Routine); Ordered 11/12/22 Ordered By: Keyonna Israel Diet: Advance to usual diet Activity on Discharge: As tolerated Care Plan Goals: Patient was admitted with right hand 4th digit cellulitis/felon: Started on IV antibiotics, blood cultures sent, hand x-ray seems fine: With the antibiotics and pain management patient seems to be improving also had I&D done by ortho, finger area seems to be improving-her blood cultures been negative and wound culture came to be MRSA sensitive to doxycycline. In addition patient was found to have a diabetes and hypertension : Patient lisinopril adjusted, added amlodipine, In addition patient has proteinuria and probably diabetic kidney disease: Workup including complement levels, serum electrophoresis pending, also has significant proteinuria. Adjusted Lasix to scheduled and also continue spironolactone. Currently patient was strongly advised to stay and get further workup and continue antibiotic management-patient categorically declined she understand the risk of leaving against medical advice worsening kidney function and infection including . Will send antibiotic to the pharmacy, pain medication and blood pressure as well as lasix. moniter renal function and electrolytes outpatient . She was strongly advised to go to nearest emergency room to get attention for her medical issues above. for further details please see discharge summary. Health Concerns: as above. Plan of Treatment: as above. Assessment: as above. Discharge Date/Time: 11/12/22 10:53
[2022-11-13 13:09] LABS: Prot Elec - Albumin 2.9 g/dL (3.8-4.8); Prot Elec - Alpha1 0.3 g/dL (0.2-0.3); Prot Elec - Alpha2 0.9 g/dL (0.5-0.9); Prot Elec - Beta 1 0.4 g/dL (0.4-0.6); Prot Elec - Beta 2 0.3 g/dL (0.2-0.5); Prot Elec - Gamma 1.7 g/dL (0.8-1.7); Prot Elec - Total Protein 6.5 g/dL (6.1-8.1)
[2022-11-14 22:48] LABS: Complement C3 140 mg/dL (83-193)
[2022-11-15 08:53] LABS: Hepatitis B Core Antibody IgM NON-REACTIVE (NON-REACTIVE)
== END 2022-11-12 10:53 | disposition left against medical advice (07) | DRG 316 ==
LOC: HO.ED 14:15 → HO.EDOVER 17:08 → HO.S3 17:54
PROVIDERS: Orthopaedic Surgery; Physician Assistant; Admitting Provider Nurse Practitioner Acute Care; Emergency Provider Emergency Medicine; PCP Internal Medicine; Visit Provider Internal Medicine
PROC: 0L970ZZ Drainage of Right Hand Tendon, Open Approach (ICD-10-PCS; principal; 2022-11-10 12:50)
DX: M65.9 Synovitis and tenosynovitis, unspecified (principal); E11.40 Type 2 diabetes mellitus with diabetic neuropathy, unspecified; L03.011 Cellulitis of right finger; E11.9 Type 2 diabetes mellitus without complications; E66.01 Morbid (severe) obesity due to excess calories; B95.62 Methicillin resistant Staphylococcus aureus infection as the cause of diseases classified elsewhere; E83.42 Hypomagnesemia; F11.20 Opioid dependence, uncomplicated; R29.6 Repeated falls; J45.909 Unspecified asthma, uncomplicated; G89.29 Other chronic pain; I73.00 Raynaud's syndrome without gangrene; M54.9 Dorsalgia, unspecified; Z68.35 Body mass index [BMI] 35.0-35.9, adult; F31.9 Bipolar disorder, unspecified; Z91.81 History of falling; F17.210 Nicotine dependence, cigarettes, uncomplicated; Z71.6 Tobacco abuse counseling; Z79.4 Long term (current) use of insulin; Z79.51 Long term (current) use of inhaled steroids; Z79.899 Other long term (current) drug therapy
CPT/HCPCS: 36415; 70450; 71045; 73130; 80048; 80061; 80076; 80307; 81001; 82947; 83036; 83605; 83735; 83880; 84156; 84165; 84484; 85025; 85652; 86140; 86160; 86704; 86705; 86706; 86709; 86803; 87040; 87070; 87077; 87186; 87205; 87340; 87635; 93005; 93970; 94640; 99285; J1885; J1940; J2270; J2405; J2543; J2795; J3010; J3475

== ENCOUNTER 2022-11-18 07:10 | Outpatient (REF) | payer OTHER, SELFPAY ==
--- NOTE | ~2022-11-18 | XR_ITS ---
EXAMINATION: XR HAND, RIGHT CLINICAL INFORMATION: Pain COMPARISON: 11/08/2022 TECHNIQUE: PA, lateral, and oblique views of the right hand. FINDINGS: No acute fracture or dislocation. Alignment is maintained throughout the hand. There is irregularity of the tuft of the fourth digit distal phalanx which could represent bone resorption associated with a prior tuft fracture. There is increased lucency seen at this location. Alternatively this could represent osseous erosion. The soft tissues are mildly swollen along the dorsum of the hand. XR/XR hand RT min 3V IMPRESSION: 1. No acute fracture or malalignment. 2. Irregularity of the tuft of the fourth digit distal phalanx with increased lucency. This could represent bone resorption associated with a prior fracture. Alternatively this could represent osseous erosion in the setting of osteomyelitis. Correlate clinically.
== END 2022-11-18 07:11 | disposition home or self-care (01) ==
LOC: HO.HOSX 07:10
PROVIDERS: Visit Provider Physician Assistant
DX: Z98.890 Other specified postprocedural states (principal); M79.641 Pain in right hand
CPT/HCPCS: 73130; 99212

== ENCOUNTER → 2022-12-02 09:38 | Outpatient (BNVA) | payer OTHER, SELFPAY | PROVIDERS: PCP Internal Medicine; Visit Provider Physician Assistant | DX: Z47.89 Encounter for other orthopedic aftercare (principal); Z87.39 Personal history of other diseases of the musculoskeletal system and connective tissue | CPT/HCPCS: 99212 ==

== ENCOUNTER 2022-12-13 08:06 | Outpatient (REF) | payer OTHER, SELFPAY | END 2022-12-13 08:07 | disposition home or self-care (01) | LOC: HO.HOSX 08:06 | PROVIDERS: Visit Provider Orthopaedic Surgery | DX: Z13.89 Encounter for screening for other disorder (principal) ==

== ENCOUNTER 2023-01-17 07:31 | Outpatient (REF) | payer OTHER, SELFPAY | END 2023-01-17 07:32 | disposition home or self-care (01) | LOC: HO.HOSX 07:31 | PROVIDERS: Visit Provider Orthopaedic Surgery | DX: Z13.89 Encounter for screening for other disorder (principal) ==

== ENCOUNTER 2023-02-14 10:58 | Outpatient (REF) | payer OTHER, SELFPAY | END 2023-02-14 10:59 | disposition home or self-care (01) | LOC: HO.HOSX 10:58 | PROVIDERS: Visit Provider Physician Assistant | DX: Z13.89 Encounter for screening for other disorder (principal) ==

== ENCOUNTER 2023-02-16 08:40 | Outpatient (REF) | payer OTHER, SELFPAY | END 2023-02-16 08:41 | disposition home or self-care (01) | LOC: HO.HOSX 08:40 | PROVIDERS: Visit Provider Physician Assistant | DX: Z13.89 Encounter for screening for other disorder (principal) ==

== ENCOUNTER 2023-03-03 09:50 | Outpatient (REF) | payer OTHER, SELFPAY | END 2023-03-03 09:51 | disposition home or self-care (01) | LOC: HO.HOSX 09:50 | PROVIDERS: Visit Provider Physician Assistant | DX: Z13.89 Encounter for screening for other disorder (principal) ==